=== PATIENT | male | born 1965 | race Caucasian/White ===

== ENCOUNTER 2016-07-15 08:27 | Outpatient (CLI) | payer OTHER ==
[~2016-07-15] VITALS: Ht 182.9 cm; Wt 109.1 kg
--- NOTE | ~2016-07-15 | HEMODYNAMI ---
PATIENT:RA ARAUZ MEDICAL RECORD: [id number] : 63 LOCATION:D.CAT ADMISSION DATE: 07/15/16 Generatedon:07/15/201613:40 Patient name: RA ARAUZ Patient #: [id number] : 1965 Date of study: 07/15/2016 Page: Of Hemodynamic Procedure Report Patient Data Patient Demographics Procedure consent was obtained First Name: RA Gender: Male Last Name: DAVONTE : 1965 Middle Initial: D Age: 50 year(s) Patient #: [id number] Race: Unknown SSN: [id number] Additional ID: [id number] Contact details [address]: [address] [place] [address] State: [place] City: [place] Zip code: [address] Past Medical History Allergies Allergen Reaction Date Comments Reported Other allergy 07/15/2016 PCN, Plavix Admission Admission Data Admission Date: 07/15/2016 Admission Time: 8:27 Arrival Date: 07/15/2016 Arrival Time: 0:00 Admit Source: Other Insurance Payor: Private health insurance Height (in.): 70 BSA: 2.26 (m2) Height (cm.): 177.8 BMI: 34.44 (kg/m2) Weight (lbs.): 240 Weight (kg.): 108.86 Lab Results Lab Result Date: 07/15/2016 Lab Result Time: 0:00 Biochemistry Name Units Result Min Max BUN mg/dl 16 --(---*)-- 7 18 Creatinine mg/dl 1.2 --(---*)-- 0.6 1.3 CBC Name Units Result Min Max Hemoglobin g/dl 16.5 --(--*-)-- 13.5 17.5 Procedure Procedure Types Cath Procedure Diagnostic Procedure LHC LH w/Coronaries FFR/IVUS PCI Procedure Coronary Stent Initial Procedure Description Procedure Date Procedure Date: 07/15/2016 Procedure Start Time: 13:16 Procedure End Time: 13:39 Procedure Staff Name Function Sergio Aguiar MD Performing Physician Pati Aguilar RN Nurse Kaylee Copeland RT Monitor Kali Engel RN School Administrator Lesly Moe RT Scrub Procedure Data Cath Procedure Fluoroscopy Diagnostic fluoroscopy Total fluoroscopy Time: 5.3 time: 5.3 min min Diagnostic fluoroscopy Total fluoroscopy dose: 556 dose: 556 mGy mGy Contrast Material Contrast Material Type Amount (ml) Isovue 300 136 Entry Location Entry Primary Successful Side Size Upsize Upsize Entry Closure Diana ccessful Closure Location (Fr) 1 (Fr) 2 (Fr) Remarks Device Remarks Radial Right 6 Fr Mechanical TR Large artery Short Compression Estimated blood loss: 10 ml Diagnostic catheters Device Type Used For End Catheter Placement Terumo 5Fr [place] 110cm LV Angiography catheter Terumo 5Fr [place] 110cm Left Coronary catheter Angiography Terumo 5Fr [place] 110cm Right Coronary catheter Angiography Procedure Complications No complications Procedure Medications Medication Administration Route Dosage Oxygen NC 2 l/min Benadryl I.V. 50 mg Lidocaine 2% added to field 20 Heparin Flush Bag added to field 2 bags (1000units/500ml NS) 0.9% NaCl I.V. 100 ml/hr Radial Cocktail I.A. 1 syringe (Verapomil 2mg/Nitro 400mcg/Heparin 1500units) Versed I.V. 1 mg Fentanyl I.V. 50 mcg Versed I.V. 1 mg Fentanyl I.V. 50 mcg Heparin Bolus I.V. 4000 units Integrilin (Bolus I.V. 9.5 ml 2mg/ml) Fentanyl I.V. 50 mcg Versed I.V. 0.5 mg Effient P.O. 60 mg Hemodynamics Rest BSA: 2.26 (m2) HGB: 16.5 (g/dl) O2 Consumption: Estimated: 266.48 (ml/min) O2 Co nsumption indexed: Estimated:117.91 (ml/min/m) Heart Rate: 66 (bpm) Snapshots Pre Cath Intra NCS Post Cath Vital Signs Time Heart Resp SPO2 NIBP (mmHg) Rhythm Pain Sedation Rate (ipm) (%) Status Level (bpm) 13:10:41 67 20 97 145/108(135) NSR 0 (11) 10(A) , No pain 13:15:01 62 18 95 152/103(126) NSR 0 (11) 10(A) , No pain 13:19:19 72 18 96 143/88(112) NSR 0 (11) 9(A) , No pain 13:23:35 75 17 95 121/83(111) NSR 0 (11) 9(A) , No pain 13:27:49 80 16 96 137/86(115) NSR 0 (11) 9(A) , No pain 13:32:09 71 18 96 137/82(100) NSR 0 (11) 9(A) , No pain 13:36:29 73 17 98 136/82(118) NSR 0 (11) 10(A) , No pain Medications Time Medication Route Dose Verified Delivered Reason Note s Effectiveness by by 13:12:57 Oxygen NC 2 l/min Sergio Buffie used for Cosme Aguilar RN procedure 13:13:11 Benadryl I.V. 50 mg Sergio Krueger Per physician Cosme Aguilar RN 13:13:21 Lidocaine 2% added 20ml Sergioloyda Hill for local to vial Cosme Aguiar MD anesthetic field 13:13:26 Heparin Flush added 2 bags Sergio Hill used for Bag to Cosme Aguiar MD procedure (1000units/500ml field NS) 13:13:35 0.9% NaCl I.V. 100 Sergio Buffie Per physician ml/hr Cosme Aguilar RN 13:15:10 Versed I.V. 1 mg Sergio Marroquinie for sedation Cosme Aguilar RN 13:15:16 Fentanyl I.V. 50 mcg Sergio Marroquinie for sedation Cosme Aguilar RN 13:19:49 Radial Cocktail I.A. 1 Sergio Sergio for (Verapomil syringe Cosme Aguiar MD vasodilation 2mg/Nitro 400mcg/Heparin 1500units) 13:21:55 Versed I.V. 1 mg Sergio Marroquinie for sedation Cosme Aguilar RN 13:21:58 Fentanyl I.V. 50 mcg Sergio Marroquinie for sedation Cosme Aguilar RN 13:23:30 Heparin Bolus I.V. 4000 Sergio Marroquinie for veri fied units Cosme Aguilar RN anticoagulation with dr aguiar 13:26:45 Integrilin I.V. 9.5 ml Sergio Krueger for (Bolus 2mg/ml) Cosme Aguilar RN antiplatelet therapy 13:29:34 Fentanyl I.V. 50 mcg Sergio Krueger for sedation Cosme Aguilar RN 13:29:39 Versed I.V. 0.5 mg Sergio Krueger for sedation Cosme Aguilar RN 13:39:22 Effient P.O. 60 mg Sergio Krueger for Cosme Aguilar RN antiplatelet therapy Procedure Log Time Note 12:40:26 Kali Engel RN sent for patient. Start room use. 12:58:03 Admit Source: Other 12:58:24 Diagnostic Cath Status : Elective 12:58:38 Time tracking: Regular hours 12:58:42 Plan of Care:Hemodynamics will remain stable., Cardiac rhythm will remain stable., Comfort level will be maintained., Respiratory function will remain adequate., Patient/ family verbilizes understanding of procedure., Procedure tolerated without complication., Recovers from procedure without complications.. 12:58:56 Patient received from Outpatients to [facility] Alert and oriented. Tansferred to table in Supine position. 12:58:58 Warm blankets applied, and jayla hugger turned on for patient comfort. 12:58:58 Correct patient and procedure confirmed by team. 12:58:59 Signed procedure consent form obtained from patient. 12:59:00 ECG and BP/O2 sat monitors applied to patient. 13:01:23 H&P Date Dictated: 07/15/2016 Within 30 days and on chart., H&P Addendum completed by physician on day of procedure. (MUST COMPLETE FOR ALL OUTPATIENTS). 13:01:25 Pre-procedure instructions explained to patient. 13:01:28 Family in waiting room. 13:01:33 Patient NPO since Midnight. 13:04:16 Patient allergic to Other allergyPCN, Plavix 13:04:21 Is the patient allergic to Iodine/contrast media? No. 13:04:47 Is patient on blood thinner?No 13:04:51 Patient diabetic? Yes. 13:04:52 If diabetic: On Metformin? Yes 13:04:56 If on Metformin: Last Dose? 07/15/2016 13:05:05 Snore? Yes 13:05:08 Sleep apnea? No 13:05:10 Deviated septum? No 13:05:11 Opens mouth fully? Yes 13:05:12 Sticks out tongue? Yes 13:05:21 Dentures? No ? 13:05:34 IV patent on arrival in left hand with 0.9% NaCl at [facility]. 13:06:21 Lab Result : BUN 16 mg/dl 13:06:21 Lab Result : Creatinine 1.2 mg/dl 13:06:21 Lab Result : Hemoglobin 16.5 g/dl 13:06:27 Lab results completed and on chart. 13:06:33 Right Radial & Right Groin area was prepped with chlora-prep and draped in sterile fashion 13:06:35 Alarms reviewed by R. N. 13:06:35 Sharps counted by scrub and verified by R.N. 13:06:37 Physician paged 13:06:52 Physician arrived 13:08:36 Patient Height : 177.8 cm 13:08:52 Patient Weight : 108.86 kg 13:08:52 Insurance Payor : Private health insurance 13:08:56 Arrival Date: 07/15/2016 12:00:00 AM 13:09:37 Vital chart was started 13:09:38 Baseline sample Acquired. 13:09:42 Full Disclosure recording started 13:09:50 ACC Patient presents with Stable Angina CCS Anginal Class 2--Slight limitation of ordinary activity. 13:10:26 --------ALL STOP TIME OUT------ 13:10:27 Final Timeout: patient, procedure, and site verified with staff and physician. All members of the team are in agreement. 13:10:29 Right Radial & Right Groin site verified by team. 13:10:35 Physical assessment completed. ASA score P 2 - A patient with mild systemic disease as per Sergio Aguiar MD. 13:10:39 Sedation plan: IV Moderate Sedation Versed, Fentanyl 13:10:55 Use device set Radial Dx 13:10:56 Acist Syringe opened to sterile field. 13:10:56 Cardinal Cath Pack opened to sterile field. 13:10:57 Bag Decanter opened to sterile field. 13:10:57 Terumo 6Fr Slender Glidesheath opened to sterile field. 13:10:58 St Jose 260cm J .035 wire opened to sterile field. 13:10:58 Acist Hand Control opened to sterile field. 13:10:59 Acist Manifold opened to sterile field. 13:11:01 Tegaderm 4 x 4 opened to sterile field. 13:12:57 Oxygen 2 l/min NC was given by Pati Aguilar RN; used for procedure; 13:13:11 Benadryl 50 mg I.V. was given by Pati Aguilar RN; Per physician; 13:13:21 Lidocaine 2% 20ml vial added to field was given by Sergio Aguiar MD; for local anesthetic; 13:13:26 Heparin Flush Bag (1000units/500ml NS) 2 bags added to field was given by Sergio Aguiar MD; used for procedure; 13:13:35 0.9% NaCl 100 ml/hr I.V. was given by Pati Aguilar RN; Per physician; 13:14:08 Zero performed for pressure channel P1 13:14:14 Zero performed for pressure channel P1 13:15:10 Versed 1 mg I.V. was given by Pati Aguilar RN; for sedation; 13:15:16 Fentanyl 50 mcg I.V. was given by Pati Aguilar RN; for sedation; 13:15:51 Procedure started. 13:16:07 Local anesthetic to right radial artery with Lidocaine 2% by Sergio Aguiar MD.INITIAL ACCESS ONLY 13:16:18 A 6 Fr Short sheath was inserted into the Right Radial artery 13:17:17 J wire advanced. 13:19:49 Radial Cocktail (Verapomil 2mg/Nitro 400mcg/Heparin 1500units) 1 syringe I.A. was given by Sergio Aguiar MD; for vasodilation; 13:20:53 Terumo 6Fr Slender Glidesheath opened to sterile field. 13:21:17 A Terumo 5Fr [place] 110cm catheter was advanced over the wire and used for LV Angiography. 13:21:41 LV Function : Normal 13:21:48 EF : 55 % 13:21:55 Versed 1 mg I.V. was given by Pait Aguilar RN; for sedation; 13:21:58 Fentanyl 50 mcg I.V. was given by Pati Aguilar RN; for sedation; 13:22:01 A Terumo 5Fr [place] 110cm catheter was advanced over the wire and used for Left Coronary Angiography. 13:23:20 A Terumo 5Fr [place] 110cm catheter was advanced over the wire and used for Right Coronary Angiography. 13:23:23 Catheter removed. 13:23:30 Heparin Bolus 4000 units I.V. was given by Pati Aguilar RN; for anticoagulation; verified with dr aguiar 13:25:24 Medtronic Launcher 6Fr AR 2.0 guide catheter opened to sterile field. 13:25:25 [place] IVUS Catheter opened to sterile field. 13:25:26 [place] Whisper J 300cm 0.014 guide wire opened to sterile field. 13:25:27 Merit BasixCompak Inflation Kit opened to sterile field. 13:26:05 IVUS catheter advanced over wire. 13:26:45 Integrilin (Bolus 2mg/ml) 9.5 ml I.V. was given by Pati Aguilar RN; for antiplatelet therapy; 13::56 IVUS pass to RCA lesion performed. 13:29:14 IVUS catheter removed over wire. 13:29:24 PCI Cath status Elective 13::34 Fentanyl 50 mcg I.V. was given by Pati Aguilar RN; for sedation; 13::39 Versed 0.5 mg I.V. was given by Pati Aguilar RN; for sedation; 13:29:39 ACC PCI Site: pRCA has 70% stenosis. 13:29:42 ACC Pre-intervention PRIYANKA Flow is 3. 13:29:52 6 Fr AR2 guide catheter was inserted over the wire 13:29:54 Wire advanced across lesion. 13:30:42 Inflation Number: 1 A Medtronic Resolute 4.0 X 15 stent was prepped and advanced across the Prox RCA. The stent was deployed at 11 CHARLI for 0:10 (min:sec). 13:33:24 Stent catheter was removed intact over wire. 13:34:20 Inflation Number: 1 A Medtronic Resolute 4.0 X 12 stent was prepped and advanced across the Mid RCA. The stent was deployed at 13 CHARLI for 0:10 (min:sec). 13:34:31 Stent catheter was removed intact over wire. 13:34:56 Terumo TR Band Large opened to sterile field. 13:35:02 Wire removed. 13:35:03 Guide catheter removed. 13:35:31 Sheath removed intact; hemostasis achieved with Mechanical Compression to the Right Radial artery. 13:36:20 Procedure ended.(Physican Out) 13:36:32 Fluoroscopy time 05.30 minutes. 13:36:54 Flurop Dose total: 556 13:36:54 Fluoroscopy dose: 556 mGy 13:37:09 Contrast amount:Isovue 300 136ml. 13:37:15 Sharps counted by scrub and verified by R.N. 13:37:25 TR band inflated with 16cc of air. 13:37:29 Insertion/operative site no bleeding no hematoma. 13:38:10 Post right femoral artery:stable 13:38:23 Post-procedure physical assessment completed. ASA score P 2 - A patient with mild systemic disease as per Sergio Aguiar MD. 13:38:27 Post procedure rhythm: unchanged. 13:38:30 Estimated blood loss: 10 ml 13:38:33 Post procedure instruction explained to patient.Patient verbalizes understanding. 13:38:47 Procedure type changed to Cath procedure, Diagnostic procedure, LHC, LHC w/Coronaries, FFR/IVUS, PCI procedure, Coronary Stent Initial 13:38:49 Procedure and supply charges have been captured, reviewed, submitted and are correct. 13:39:20 Procedure Complication : No complications 13:39:22 Effient 60 mg P.O. was given by Pati Aguilar RN; for antiplatelet therapy; 13:39:23 Vital chart was stopped 13:39:24 See physician's report for complete and final results. 13:39:28 Report given to Post Procedure Room. 13:39:34 Patient transfered to Post Procedure Room with Stretcher. 13:39:37 Procedure ended. 13:39:37 Full Disclosure recording stopped 13:39:48 ACC-PCI Only Patient was given prescriptions, or instructed by Sergio Aguiar MD to start/continue the following medications upon discharge: Effient 13:39:50 End room use (Document Last) Intervention Summary Intervention Notes Time ActionType Lesion and Equipment Action# Pressure Duration Attributes Used 13:30:42 Place stent Prox RCA Medtronic 1 11 00:10 Resolute 4.0 X 15 stent 13:34:20 Place stent Mid RCA Medtronic 1 13 00:10 Resolute 4.0 X 12 stent Device Usage Item Name Manufacture Quantity Catalog Hospital Part Current Minimal Lot# / Number Charge Number Stock Stock Serial# Code Acist Acist 1 25600 [id number] 084018 [id number] 20 HumanCentric Performance [facility] [address] 502679 62120 538515 5 Cath Pack Health Bag Microtek 1 2002S 320743 58992 532483 5 Alert [employer]. Terumo 6Fr Terumo 2 [id number] 183168 274037 176754 [address] Jose 1 919168 169755 741439 009359 30 260cm J .035 wire Acist Hand Acist 1 97411 223266 978757 790980 5 Control Medical Systems Inc Acist Acist 1 36100 596058 882252 887910 5 Manifold Medical Systems Inc Tegaderm 4 3M 1 1626W 648149 158500 646334 5 x 4 Terumo 5Fr Terumo 1 40-8102 373957 649373 384600 5 [place] 110cm catheter Medtronic Medtronic 1 [id number] 334903 22393 339405 1 Launcher 6Fr AR 2.0 guide catheter [place] 1 [id number] 684445 306897 071244 8 [place] IVUS Catheter [facility] 1 [id number] 996780 381211 856254 5 Whisper J Vascular 300cm 0.014 guide wire Merit Merit 1 [id number] 864327 014803 517343 15 BasixCompak Medical Inflation Kit Medtronic Medtronic 1 [id number] 200002 186668 0 [id number] Resolute 4.0 X 15 stent Medtronic Medtronic 1 [id number] 469290 688040 0 [id number] Resolute 4.0 X 12 stent Terumo TR Terumo 1 [id number] 910317 975955 40 Band Large Signature Audit Saline Stage Time Signature Unsigned Intra-Procedure 07/15/2016 Kaylee Copeland 1:40:41 PM RT(R) Signatures Monitor : Kaylee Copeland Signature : RT Date : Time : [facility] [address] [place] [address]
[~2016-07-15 08:27] MED LIST: CHILDREN'S ASPI81 MG PO; EFFIENT10 MG PO; IMDUR30 MG PO; LOPRESSOR25 MG PO; PLAVIX75 MG PO; PRAVACHOL40 MG PO; ZESTRIL20 MG PO
[2016-07-15 11:11] LABS: BASOPHILS 0.2 % (0.0-2.0); EOSINOPHILS 0.9 % (0-7); HEMATOCRIT 46.9 % (42.0-54.0); HEMOGLOBIN 16.5 g/dL (13.5-17.5); IMMATURE GRANULOCYTES 0.3 % (0-5); LYMPHOCYTES 20.2 % (15-50); MCH 29.2 pg (26.0-34.0); MCHC 35.2 g/dL (31.0-37.0); MEAN PLATELET VOLUME 10.9 fL (7.4-10.4); NEUTROPHILS 68.4 % (40-80); PLATELET COUNT 157 10x3/uL (130-400); RBC 5.65 10x6/uL (4.20-6.10); RDW 13.2 % (11.5-14.5); WBC 6.5 10x3/uL (4.8-10.8)
[2016-07-15 11:24] LABS: ANION GAP 12.4 mmol/L (8-16); CALCIUM 9.2 mg/dL (8.5-10.1); CARBON DIOXIDE 28.9 mmol/L (21.0-32.0); CREATININE - SERUM 1.2 mg/dL (0.6-1.3); POTASSIUM - SERUM 4.3 mmol/L (3.5-5.1)
[2016-07-15 11:39] VITALS: BP 131/75; Ht 182.9 cm; Wt 109.1 kg
[2016-07-15] MEDS ORDERED: GLUCOPHAGE850 MG PO (11:42)
[2016-07-15] MEDS ORDERED: NORVASC5 MG PO (11:43)
[2016-07-15] MEDS ORDERED: PLAVIX75 MG PO (13:45)
[2016-07-15] MEDS ORDERED: EFFIENT10 MG PO (13:46)
--- NOTE | 2016-07-15 14:06 | NUR ---
VSS WITH CHEST PAIN DENIED. TR BAND TO R/WRIST CDI NO BLEEDING NO HEMATOMA NOTED. INSTRUCTED PATIENT TO KEEP RUE STRAIGHT NO BENDING OR FLEXING OF WRIST
--- NOTE | 2016-07-15 14:31 | NUR ---
RESTING QUIETLY WITH EYES CLOSED NO DISTRESS NOTED. VSS TR BAND TO R/WRIST CDI NO BLEEDING NO HEMATOMA NOTED WILL MONITOR
--- NOTE | 2016-07-15 14:46 | NUR ---
VSS WITH CHEST PAIN DENIED TR BAND TO R/WRIST CDI NO BLEEDING NO HEMATOMA NOTED WILL MONITOR
--- NOTE | 2016-07-15 15:20 | NUR ---
REPORT CALLED TO OUTPATIENT WITH STAFF TO TRANSFER VIA STRETCHER AT SIDE. TR BAND REMAINS TO R/WRIST CDI NO BLEEDING NO HEMATOMA NOTED CHEST PAIN IS DENIED
--- NOTE | 2016-07-15 18:57 | NUR ---
1525 RECEIVED FROM CATH RECOVERY. ALERT AND TALKATIVE. RESP EVEN AND NONLABORED POST CATH AND STENT PLACEMENT. TRBAND TO RT WRIST NO BLEEDING RADIAL PULSE PRESENT,AND INSTRUCTED NOT TO MOVE OR LIFT WITH WRIST.
--- NOTE | 2016-07-15 19:15 | NUR ---
1625 NO BLEEDING TO RT WRIST AND TRBAND ON RADIAL PULSE PRESENT. RESTING QUIETLY.
--- NOTE | 2016-07-15 19:18 | NUR ---
1630 4CC OF AIR REMOVED FROM TRBAND NO BLEEDING.
--- NOTE | 2016-07-15 19:18 | NUR ---
1645 4CC OF AIR REMOVED FROM TRBAND NO BLEEDING.
--- NOTE | 2016-07-15 19:19 | NUR ---
1720 4CC OF AIR REMOVED FROM TRBAND,NO BLEEDING.
--- NOTE | 2016-07-15 19:19 | NUR ---
1700 4CC OF AIR REMOVED FROM TRBAND NO BLEEDING.
--- NOTE | 2016-07-15 19:20 | NUR ---
1730 TRBAND OFF DCD IV CATHETER INTACT. WENT OVER DISCHARGE INSTRUCTIONS POST CATH INSTRUCTIOPNS EFIENT SCRIPT GIVEM AND FOLLOW UP APPOINTMENT GIVEN AND VERBALLY UNDERSTANDS.
--- NOTE | 2016-07-15 19:21 | NUR ---
1735 VOIDED PRIOR TO DISCHARGE AND TO HOME VIA W/C WITH FAMILY.
--- NOTE | 2016-07-22 11:11 | HP ---
PATIENT: RA ARAUZ MEDICAL RECORD: [id number] ACCOUNT: [id number] LOCATION:[facility] : 63 ADMISSION DATE: 07/15/16 HISTORY AND PHYSICAL EXAMINATION DIAGNOSES: 1. Angina. 2. Coronary artery disease. 3. Hypertension. 4. Hyperlipidemia. HISTORY OF PRESENT ILLNESS: Mr. Arauz presents with anginal symptomatology, underwent nuclear stress testing revealing a large perfusion defect anterolaterally. He is now brought for cardiac catheterization. PHYSICAL EXAMINATION: GENERAL APPEARANCE: Well-nourished, well-developed, appears stated age. Level of distress, comfortable. PSYCHIATRIC: Mental status, alert, normal affect. Orientation, oriented to time, place and person. EYES: Lids and conjunctiva, noninjected. No discharge, no pallor. ENT: Lips, teeth, gums, normal dentition. Oropharynx, no cyanosis, no pallor. NECK: Carotid arteries, bilateral normal upstroke, no bruits, no thrills. JUGULAR VEINS: No jugular venous pressure or distention. CERVICAL LYMPH NODES: Nontender, nonenlarged. THYROID: Not enlarged. Nontender. No nodules. LUNGS: Respiratory effort, unlabored. CHEST: Normal curvature. No thoracic deformity. No chest wall tenderness. Percussion, resonant. Auscultation, clear. No wheezes, no rales, no rhonchi. CARDIOVASCULAR: Precordial exam, nondisplaced. No heaves or pericardial thrills. Rate and rhythm, regular. Heart sounds, normal S1, normal S2. No S3, no gallop, no rub. Systolic murmur, not heard. Diastolic murmur, not heard. EXTREMITIES: No cyanosis, no edema. Peripheral pulses, full and equal in all extremities, except as noted. No bruits appreciated. ABDOMEN: Soft, nondistended. Normal aorta. No bruit. Nontender. No masses. Liver, nontender, no hepatomegaly. Spleen, nontender, no splenomegaly. MUSCULOSKELETAL: No joint tenderness. No joint swelling. No erythema. NEUROLOGICAL: Normal gait, normal strength, normal tone. SKIN: Warm and dry. REVIEW OF SYSTEMS: The patient reports easy bruising but reports no swollen glands. The patient reports no fever, no night sweats, no significant weight gain, no significant weight loss. No significant exercise tolerance. The patient reports no dry eyes, no irritation, no vision change. Patient reports no difficulty hearing and no ear pain. Patient reports no frequent nose bleeds or nose and sinus problems. Patient reports on arm pain on exertion. No shortness of breath while lying down. No history of heart murmur. Patient reports no cough, no wheezing or coughing up blood. Patient reports no abdominal pain, no vomiting. Normal appetite. No diarrhea and not vomiting blood. No nausea and no constipation. Patient reports no incontinence. No difficulty urinating. No hematuria. No increased frequency. Patient reports no muscle aches. No weakness, no arthralgias, no back pain. No swelling of the extremities. Patient reports no abnormal mole, no jaundice, no rashes. Reports no loss of consciousness. No weakness and no numbness. No seizures, dizziness, or headaches. The patient reports no depression, no sleep disturbance, feeling HISTORY AND PHYSICAL [id number] RA ARAUZ safe in a relationship and no alcohol abuse. Patient reports on fatigue. Reports no runny nose or sinus pressure. No itching, no hives, and no frequent sneezing. OVERALL IMPRESSION: Increasing anginal symptomatology in an unstable fashion with a very abnormal nuclear stress test. We will proceed with coronary angiography. Further care depends upon findings of the angiography. TRANSINT:[id number] Voice Confirmation ID: [id number] DOCUMENT ID: [id number] RAKESH TODD MD at 1111 CC: [id number] DICTATION DATE: 07/15/16 0946 JAVA FRONT END WEB DEVELOPER: 07/15/16 1019 DEP CLI 07/15/16 [place] [id number]
--- NOTE | 2016-07-22 11:11 | OP ---
PATIENT NAME: RA ARAUZ MEDICAL RECORD: [id number] :63 LOCATION:D.CAT ADMISSION DATE: SURGEON: RAKESH TODD MD DATE OF OPERATION: 07/15/2016 PROCEDURES: 1. PTCA stent RCA. 2. Intravascular ultrasound RCA. 3. Left heart catheterization. 4. Selective coronary angiography. 5. Left ventriculogram. INDICATION: Angina and coronary artery disease. PROCEDURE IN DETAIL: After informed consent was obtained and after a detailed explanation of the risks, benefits as well as alternative therapies, the patient elected to proceed with angiogram and angioplasty. The right radial area was prepped and draped in normal sterile fashion. Right radial artery was cannulated via modified Seldinger technique with placement of 6-Upper Sorbian sheath. All catheters exchanged through this sheath. FINDINGS: Left ventriculogram was performed in standard 30-degree KENNEDY view, reveals preserved ejection fraction at 50%. SELECTIVE CORONARY ANGIOGRAPHY: 1. Left main showed no significant angiographic disease. 2. Left anterior descending has previously placed stents, these are patent. There is moderate irregularities throughout the LAD and its branches. 3. Left circumflex has a 90% stenosis of the first obtuse marginal and the circumflex itself. 4. The right coronary has a 70% stenosis proximally confirmed by intravascular ultrasound. PERCUTANEOUS TRANSLUMINAL CORONARY ANGIOPLASTY STENT OF THE RIGHT CORONARY ARTERY: Decision was made to intervene on the RCA secondary to poor catheter seating in the left which will most likely need a femoral approach, as well as the RCA being the largest of the vessels. The RCA was addressed with a 4.0 x 15 and 4.0 x 12 Resolute stent. Result was 0% residual stenosis. OVERALL IMPRESSION: Successful percutaneous transluminal coronary angioplasty stent of the right coronary artery going from 70% initial stenosis confirmed by intravascular ultrasound to 0% residual. PLAN: For PTCA stent of the left circumflex in the near future. TRANSINT:[id number] Voice Confirmation ID: [id number] DOCUMENT ID: [id number] OPERATIVE REPORT [id number] DAVONTERARAKESH STAPLES MD at 1111 CC: [id number] DICTATION DATE: 07/15/16 1341 [facility] RESIDENT: 07/15/16 1451 [facility] CLI 07/15/16 [place] [id number] [place] [address]
--- NOTE | 2016-07-22 11:11 | HP ---
PATIENT: RA ARAUZ MEDICAL RECORD: [id number] ACCOUNT: [id number] LOCATION:[facility] : 63 ADMISSION DATE: 07/15/16 HISTORY AND PHYSICAL EXAMINATION ADMITTING DIAGNOSES: 1. Angina. 2. Coronary artery disease. 3. Recent percutaneous transluminal coronary angioplasty stent of the right coronary artery with concomitant disease of the left circumflex. 4. Hypertension. 5. Hyperlipidemia. HISTORY OF PRESENT ILLNESS: Mr. Arauz presents with unstable angina last week, found to have 2-vessel coronary artery disease of the circumflex and underwent successful PTCA stent of the RCA. He has a 90% of the circumflex and ramus intermedius that is now brought back for PTCA stent of both of these territories. PHYSICAL EXAMINATION: GENERAL APPEARANCE: Well-nourished, well-developed, appears stated age. Level of distress, comfortable. PSYCHIATRIC: Mental status, alert, normal affect. Orientation, oriented to time, place and person. EYES: Lids and conjunctiva, noninjected. No discharge, no pallor. ENT: Lips, teeth, gums, normal dentition. Oropharynx, no cyanosis, no pallor. NECK: Carotid arteries, bilateral normal upstroke, no bruits, no thrills. JUGULAR VEINS: No jugular venous pressure or distention. CERVICAL LYMPH NODES: Nontender, nonenlarged. THYROID: Not enlarged. Nontender. No nodules. LUNGS: Respiratory effort, unlabored. CHEST: Normal curvature. No thoracic deformity. No chest wall tenderness. Percussion, resonant. Auscultation, clear. No wheezes, no rales, no rhonchi. CARDIOVASCULAR: Precordial exam, nondisplaced. No heaves or pericardial thrills. Rate and rhythm, regular. Heart sounds, normal S1, normal S2. No S3, no gallop, no rub. Systolic murmur, not heard. Diastolic murmur, not heard. EXTREMITIES: No cyanosis, no edema. Peripheral pulses, full and equal in all extremities, except as noted. No bruits appreciated. ABDOMEN: Soft, nondistended. Normal aorta. No bruit. Nontender. No masses. Liver, nontender, no hepatomegaly. Spleen, nontender, no splenomegaly. MUSCULOSKELETAL: No joint tenderness. No joint swelling. No erythema. NEUROLOGICAL: Normal gait, normal strength, normal tone. SKIN: Warm and dry. REVIEW OF SYSTEMS: The patient reports easy bruising but reports no swollen glands. The patient reports no fever, no night sweats, no significant weight gain, no significant weight loss. No significant exercise tolerance. The patient reports no dry eyes, no irritation, no vision change. Patient reports no difficulty hearing and no ear pain. Patient reports no frequent nose bleeds or nose and sinus problems. Patient reports on arm pain on exertion. No shortness of breath while lying down. No history of heart murmur. Patient reports no cough, no wheezing or coughing up blood. Patient reports no abdominal pain, no vomiting. Normal appetite. No diarrhea and not vomiting blood. No nausea and no constipation. Patient reports no incontinence. No difficulty urinating. No hematuria. No increased frequency. Patient reports HISTORY AND PHYSICAL [id number] RA ARAUZ no muscle aches. No weakness, no arthralgias, no back pain. No swelling of the extremities. Patient reports no abnormal mole, no jaundice, no rashes. Reports no loss of consciousness. No weakness and no numbness. No seizures, dizziness, or headaches. The patient reports no depression, no sleep disturbance, feeling safe in a relationship and no alcohol abuse. Patient reports on fatigue. Reports no runny nose or sinus pressure. No itching, no hives, and no frequent sneezing. OVERALL IMPRESSION: Anginal symptomatology with significant disease of the circumflex and ramus. We will proceed with PTCA stent of circumflex and ramus. TRANSINT:[id number] Voice Confirmation ID: [id number] DOCUMENT ID: [id number] RAKESH TODD MD at 1111 CC: [id number] DICTATION DATE: 07/18/16 0847 [employer] EQUIPMENT OPERATOR: 07/18/16 0854 [facility] CLI 07/15/16 [place] [id number] [place] [address]
== END 2016-07-15 17:35 | disposition home or self-care (01) ==
LOC: D.CATH 08:27
PROVIDERS: Internal Medicine Interventional Cardiology
DX: I25.119 Atherosclerotic heart disease of native coronary artery with unspecified angina pectoris (principal); I10 Essential (primary) hypertension; E78.5 Hyperlipidemia, unspecified

== ENCOUNTER → 2016-07-20 07:03 | Outpatient (CLI) | payer OTHER ==
[~2016-07-20] VITALS: Ht 182.9 cm; Wt 109.1 kg
--- NOTE | ~2016-07-20 | HEMODYNAMI ---
PATIENT:RA ARAUZ MEDICAL RECORD: [id number] : 63 LOCATION:[facility] ADMISSION DATE: 07/20/16 Generatedon:07/20/201610:18 Patient name: RA ARAUZ Patient #: [id number] : 1965 Date of study: 07/20/2016 Page: Of Hemodynamic Procedure Report Patient Data Patient Demographics Procedure consent was obtained First Name: RA Gender: Male Last Name: DAVONTE : 1965 Middle Initial: NICKI Age: 50 year(s) Patient #: [id number] Race: SSN: [id number] Additional ID: [id number] Contact details [address]: [address] [place] [address] State: [place] City: [place] Zip code: [address] Past Medical History Allergies Allergen Reaction Date Comments Reported Other allergy 07/15/2016 PCN, Plavix Other allergy 07/20/2016 PLAVIX, PCN Admission Admission Data Admission Date: 07/20/2016 Admission Time: 7:03 Admit Source: Other Insurance Payor: Private health insurance Height (in.): 72 BSA: 2.3 (m2) Height (cm.): 182.88 BMI: 32.55 (kg/m2) Weight (lbs.): 240 Weight (kg.): 108.86 Medications upon Admission Medications Dosage Times Administered Last Remarks per Delivery Day Date and Time Aspirin Yes 07/19/2016 (any) 0:00 Prasugrel Yes 07/20/2016 0:00 Lab Results Lab Result Date: 07/20/2016 Lab Result Time: 7:30 Biochemistry Name Units Result Min Max BUN mg/dl 18 --(---*)-- 7 18 Creatinine mg/dl 1.3 --(---*)-- 0.6 1.3 CBC Name Units Result Min Max Hematocrit % 44.9 --(*---)-- 42 54 Hemoglobin g/dl 15.8 --(--*-)-- 13.5 17.5 Procedure Procedure Types Cath Procedure PCI Procedure Coronary Stent Initial x2 Procedure Description Procedure Date Procedure Date: 07/20/2016 Procedure Start Time: 9:52 Procedure End Time: 10:18 Procedure Staff Name Function Peg Hicks RT Monitor Kali Engel RN Cork Wirer Pati Aguilar RN Nurse Sergio Aguiar MD Performing Physician Augie Guillaume RT Scrub Kaylee Copeland RT Monitor Additional PCI Information PCI indication: Staged PCI Procedure Data Cath Procedure Fluoroscopy Diagnostic fluoroscopy Total fluoroscopy Time: time: 10.6 min 10.6 min Diagnostic fluoroscopy Total fluoroscopy dose: dose: 1793 mGy 1793 mGy Contrast Material Contrast Material Type Amount (ml) Isovue 300 182 Entry Location Entry Primary Successful Side Size Upsize Upsize Entry Closure Succes sful Closure Location (Fr) 1 (Fr) 2 (Fr) Remarks Device Remarks Femoral Right 6 Fr Exoseal artery Short Estimated blood loss: 10 ml Procedure Complications No complications Procedure Medications Medication Administration Route Dosage Oxygen NC 2 l/min Benadryl I.V. 50 mg Lidocaine 2% added to field 20 Heparin Flush Bag added to field 2 bags (1000units/500ml NS) 0.9% NaCl I.V. 100 ml/hr Heparin Bolus I.V. 4000 units Versed I.V. 1 mg Fentanyl I.V. 50 mcg Versed I.V. 1 mg Fentanyl I.V. 50 mcg Versed I.V. 1 mg Versed I.V. 1 mg Hemodynamics Rest BSA: 2.3 (m2) HGB: 15.8 (g/dl) O2 Consumption: Estimated: 269.69 (ml/min) O2 Con sumption indexed: Estimated:117.26 (ml/min/m) Heart Rate: 64 (bpm) Snapshots Pre Cath Intra NCS Post Cath Vital Signs Time Heart Resp SPO2 NIBP (mmHg) Rhythm Pain Sedation Rate (ipm) (%) Status Level (bpm) 9:31:21 59 16 97 139/81(102) NSR 0 (11) 10(A) , No pain 9:35:35 60 21 98 145/92(109) NSR 0 (11) 10(A) , No pain 9:39:51 64 17 97 143/91(110) NSR 0 (11) 10(A) , No pain 9:44:11 57 18 95 150/69(96) NSR 0 (11) 10(A) , No pain 9:48:36 57 17 96 125/69(95) NSR 0 (11) 10(A) , No pain 9:52:47 61 15 98 130/76(93) NSR 0 (11) 9(A) , No pain 9:57:00 76 16 95 129/79(105) NSR 0 (11) 9(A) , No pain 10:01:14 75 17 93 137/77(107) NSR 0 (11) 9(A) , No pain 10:05:28 74 16 97 142/85(109) NSR 0 (11) 9(A) , No pain 10:09:41 76 15 98 140/92(107) NSR 0 (11) 9(A) , No pain 10:13:53 80 18 99 160/93(120) NSR 0 (11) 10(A) , No pain 10:18:16 75 15 97 142/90(120) NSR 0 (11) 10(A) , No pain Medications Time Medication Route Dose Verified Delivered Reason Notes Ef fectiveness by by 9:34:41 Oxygen NC 2 Sergio Buffie used for l/min Cosme Aguilar biometric technician 9:34:49 Benadryl I.V. 50 mg Sergio Buffie used for Cosme Aguilar RN procedure 9:34:57 Lidocaine 2% added 20ml Sergio Sergio for local to vial Cosme Aguiar MD anesthetic field 9:35:03 Heparin Flush added 2 Sergio Sergio used for Bag to bags Cosme Aguiar MD procedure (1000units/500ml field NS) 9:35:13 0.9% NaCl I.V. 100 Sergio Buffie Per ml/hr Cosme Aguilar RN physician 9:48:52 Versed I.V. 1 mg Sergio Marroquinie for Cosme Aguilar RN sedation 9:48:58 Fentanyl I.V. 50 Sergio Buffie for mcg Cosme Aguilar RN sedation 9:52:43 Heparin Bolus I.V. 4000 Sergio Buffie verified units Cosme Aguilar RN with dr aguiar 9:54:03 Versed I.V. 1 mg Sergio Marroquinie for Cosme Aguilar RN sedation 9:54:06 Fentanyl I.V. 50 Sergio Buffie for mcg Cosme Aguilar RN sedation 10:00:21 Versed I.V. 1 mg Sergio Aguilar RN sedation 10:10:28 Versed I.V. 1 mg Sergio Krueger for Cosme Aguilar RN sedation Procedure Log Time Note 9:00:57 Kali Engel RN sent for patient. Start room use. 9:13:31 Informed consent obtained and on chart 9:14:58 Lab Result : Hemoglobin 15.8 g/dl 9::58 Lab Result : Hematocrit 44.9 % 9::58 Lab Result : BUN 18 mg/dl 9::58 Lab Result : Creatinine 1.3 mg/dl 9:16:05 ACC Patient presents with Stable Angina CCS Anginal Class 2--Slight limitation of ordinary activity. 9:16:09 Time tracking: Regular hours 9:16:15 Plan of Care:Hemodynamics will remain stable., Cardiac rhythm will remain stable., Comfort level will be maintained., Respiratory function will remain adequate., Patient/ family verbilizes understanding of procedure., Procedure tolerated without complication., Recovers from procedure without complications.. 9:16:30 H&P Date Dictated: 07/20/2016 Within 30 days and on chart., H&P Addendum completed by physician on day of procedure. (MUST COMPLETE FOR ALL OUTPATIENTS). 9:17:42 PCI Indication : Staged PCI 9:18:03 Lab results completed and on chart. 9:24:01 Patient received from Outpatients to [facility] 3 Alert and oriented. Tansferred to table in Supine position. 9:24:02 Warm blankets applied, and jayla hugger turned on for patient comfort. 9:24:02 Correct patient and procedure confirmed by team. 9:24:03 ECG and BP/O2 sat monitors applied to patient. 9:24:05 Full Disclosure recording started 9:24:55 Pre-procedure instructions explained to patient. 9:24:55 Pre-procedure instructions explained to patient. 9:24:56 Pre-op teaching completed and patient verbalized understanding. 9:24:58 Family in waiting room. 9:24:59 Patient NPO since Midnight. 9:25:28 Patient allergic to Other allergyPLAVIX, PCN 9:25:31 Is the patient allergic to Iodine/contrast media? No. 9:25:33 Is patient on blood thinner?Yes 9:25:52 ACC The patient was administered the following blood thiners within the last 24 hours: ACCAspirin, ACCEffient 9:25:55 Patient diabetic? Yes. 9:25:56 If diabetic: On Metformin? Yes 9:26:02 If on Metformin: Last Dose? 07/12/2016 9:26:07 Previous problem with sedation/anesthesia? No ? 9:26:09 Snore? Yes 9:26:11 Sleep apnea? No 9:26:13 Deviated septum? No 9:26:14 Opens mouth fully? Yes 9:26:14 Sticks out tongue? Yes 9:26:19 Airway obstruction? No ? 9:26:30 Dentures? Yes OUT 9:26:34 Pre procedure: right dorsailis pedis pulse 2+ Normal; easily identifiable; not easily obliterated 9:26:39 Modified Rodney's test Ulnar < 7 seconds 9:26:42 Patient pain scale 0/10 ?. 9:26:47 IV patent on arrival in left wrist with 0.9% NaCl at [facility]. 9:26:55 Right groin area was prepped with chlora-prep and draped in sterile fashion 9:26:56 Alarms reviewed by R. N. 9:26:57 Sharps counted by scrub and verified by R.N. 9:27:01 Acist Syringe opened to sterile field. 9:27:02 Acist Hand Control opened to sterile field. 9:27:02 Bag Decanter opened to sterile field. 9:27:03 Cardinal Cath Pack opened to sterile field. 9:27:03 Merit BasixCompak Inflation Kit opened to sterile field. 9:27:05 St Jose 260cm Straight .035 wire opened to sterile field. 9:27:05 Acist Manifold opened to sterile field. 9:27:07 Tegaderm 4 x 4 opened to sterile field. 9:27:13 Admit Source: Other 9:28:19 Patient Height : 72 cm 9:28:22 Patient Weight : 240 kg 9:28:47 Insurance Payor : Private health insurance 9:29:04 PCI Cath Status : Elective 9:30:11 Vital chart was started 9:30:15 Rhythm: sinus rhythm 9:31:01 Terumo 6Fr Raymond Sheath opened to sterile field. 9:32:05 Beavers Whisper J 300cm 0.014 guide wire opened to sterile field. 9:34:41 Oxygen 2 l/min NC was given by Pati Aguilar RN; used for procedure; 9:34:49 Benadryl 50 mg I.V. was given by Pati Aguilar RN; used for procedure; 9:34:57 Lidocaine 2% 20ml vial added to field was given by Sergio Aguiar MD; for local anesthetic; 9:35:03 Heparin Flush Bag (1000units/500ml NS) 2 bags added to field was given by Sergio Aguiar MD; used for procedure; 9:35:13 0.9% NaCl 100 ml/hr I.V. was given by Pati Aguilar RN; Per physician; 9:37:37 PATIENT HAS A SUPERFICIAL SCRATCH BY HIS DOG ON HIS RIGHT INNER THIGH LOS IS ABOUT 4 INCHES LONG 9:40:06 Baseline sample Acquired. 9:46:06 Physician paged 9:46:29 Zero performed for pressure channel P1 9:47:26 Final Timeout: patient, procedure, and site verified with staff and physician. All members of the team are in agreement. 9:47:29 Right groin site verified by team. 9:47:36 Physical assessment completed. ASA score P 2 - A patient with mild systemic disease as per Sergio Aguiar MD. 9:47:39 Sedation plan: IV Moderate Sedation Versed, Fentanyl 9:48:06 Cordis 6FR XBLAD 4.0 guide catheter opened to sterile field. 9:48:52 Versed 1 mg I.V. was given by Pati Aguilar RN; for sedation; 9:48:58 Fentanyl 50 mcg I.V. was given by Pati Aguilar RN; for sedation; 9:52:12 Procedure started. 9:52:20 Local anesthetic to right femoral artery with Lidocaine 2% by Sergio Aguiar MD.INITIAL ACCESS ONLY 9:52:28 A 6 Fr Short sheath was inserted into the Right Femoral artery 9:52:43 Heparin Bolus 4000 units I.V. was given by Pati Aguilar RN; ; verified with dr aguiar 9:52:56 6 Fr XBLAD 4.0 guide catheter was inserted over the wire 9:52:57 Whisper wire advanced. 9:54:03 Versed 1 mg I.V. was given by Pati Aguilar RN; for sedation; 9:54:06 Fentanyl 50 mcg I.V. was given by Pati Aguilar RN; for sedation; 9:55:24 Inflation number: 1 A Kent Sci Wolfe 2.5 X 20 balloon was prepped and advanced across the Ramus, then inflated to 13 CHARLI for 0:28 (min:sec). 9:55:32 Inflation number: 2 The Kent Sci Wolfe 2.5 X 20 balloon was reinflated across the Ramus, to 15 CHARLI for 0:07 (min:sec). 9:55:58 Inflation number: 3 The Kent Sci Wolfe 2.5 X 20 balloon was reinflated across the Ramus, to 15 CHARLI for 0:16 (min:sec). 9:57:12 Balloon removed over the wire. 9:58:57 Inflation Number: 4 A Medtronic Resolute 2.5 X 18 stent was prepped and advanced across the Ramus. The stent was deployed at 23 CHARLI for 0:15 (min:sec). 10:00:07 Wire redirected to Circ. 10:00:21 Versed 1 mg I.V. was given by Pati Aguilar RN; for sedation; 10:01:06 Inflation number: 1 The stent balloon was then re-inflated across the Mid CX to 13 CHARLI for 0:09 (min:sec). 10:01:44 Stent catheter was removed intact over wire. 10:03:16 Inflation Number: 2 A Medtronic Resolute 2.5 X 26 stent was prepped and advanced across the Mid CX. The stent was deployed at 13 CHARLI for 0:06 (min:sec). 10:03:51 Stent catheter was removed intact over wire. 10:04:01 Wire redirected to RAMUS. 10:04:30 Inflation number: 7 The stent balloon was then re-inflated across the Ramus to 6 CHARLI for 0:15 (min:sec). 10:04:51 Inflation number: 6 The stent balloon was then re-inflated across the Ramus to 3 CHARLI for 0:12 (min:sec). 10:05:29 Inflation number: 5 The stent balloon was then re-inflated across the Ramus to 4 CHARLI for 0:21 (min:sec). 10:06:42 Stent catheter was removed intact over wire. 10:10:28 Versed 1 mg I.V. was given by Pati Aguilar RN; for sedation; 10:11:18 Inflation number: 8 A NC Euphora 2.75 x 15 balloon was prepped and advanced across the Ramus, then inflated to 21 CHARLI for 0:27 (min:sec). 10:11:55 Balloon removed over the wire. 10:11:56 Wire removed. 10:11:56 Guide catheter removed. 10:12:05 Cordis 6Fr Exoseal opened to sterile field. 10:12:42 Sheath removed intact; hemostasis achieved with Exoseal to the Right Femoral artery. 10:12:45 Procedure ended.(Physican Out) 10:13:01 Fluoroscopy time 10.60 minutes. 10:13:08 Fluoroscopy dose: 1793 mGy 10:13:08 Flurop Dose total: 1793 10:13:11 Contrast amount:Isovue 300 182ml. 10:13:13 Sharps counted by scrub and verified by R.N. 10:13:17 Insertion/operative site no bleeding no hematoma. 10:13:25 Post-op/insertion site Right Femoral artery dressed using a 4 x 4 and Tegaderm. 10:13:29 Post right femoral artery:stable, clean and dry 10:13:36 Post Procedure Pulses reassessed and unchanged 10:13:39 Post-procedure physical assessment completed. ASA score P 2 - A patient with mild systemic disease as per Sergio Aguiar MD. 10:13:50 Post procedure rhythm: unchanged. 10:13:52 Estimated blood loss: 10 ml 10:13:54 Post procedure instruction explained to patient.Patient verbalizes understanding. 10:13:54 Patient needs reinforcement of post procedure teaching. 10:14:18 Procedure type changed to Cath procedure, PCI procedure, Coronary Stent Initial x2 10:14:25 Procedure Complication : No complications 10:14:34 See physician's report for complete and final results. 10:17:50 Vital chart was stopped 10:18:13 Procedure and supply charges have been captured, reviewed, submitted and are correct. 10:18:16 Report given to Post Procedure Room. 10:18:20 Patient transfered to Post Procedure Room with Stretcher. 10:18:28 Procedure ended. 10:18:28 Full Disclosure recording stopped 10:18:31 End room use (Document Last) Intervention Summary Intervention Notes Time ActionType Lesion and Equipment Action# Pressure Duration Attributes Used 9:55:24 Inflate Ramus Kent 1 13 00:28 balloon Sci Wolfe 2.5 X 20 balloon 9:55:32 Reinflate Ramus Kent 2 15 00:07 balloon Sci Wolfe 2.5 X 20 balloon 9:55:58 Reinflate Ramus Kent 3 15 00:16 balloon Sci Wolfe 2.5 X 20 balloon 9:58:57 Place stent Ramus Medtronic 4 23 00:15 Resolute 2.5 X 18 stent 10:01:06 Reinflate Mid CX Medtronic 1 13 00:09 stent Resolute balloon 2.5 X 18 stent 10:03:16 Place stent Mid CX Medtronic 2 13 00:06 Resolute 2.5 X 26 stent 10:04:30 Reinflate Ramus Medtronic 7 6 00:15 stent Resolute balloon 2.5 X 26 stent 10:04:51 Reinflate Ramus Medtronic 6 3 00:12 stent Resolute balloon 2.5 X 26 stent 10:05:29 Reinflate Ramus Medtronic 5 4 00:21 stent Resolute balloon 2.5 X 26 stent 10:11:18 Inflate Ramus NC 8 21 00:27 balloon Euphora 2.75 x 15 balloon Device Usage Item Name Manufacture Quantity Catalog Number Hospital Part Current Mini mal Lot# / Charge Number Stock Stock Serial# Code Acist Acist 1 02973 539267 140725 [id number] 20 Syringe Medical Systems Inc Acist Hand Acist 1 10088 103036 354336 350375 5 Linebacker Medical Systems Inc Bag Microtek 1 2002S 123207 34787 821487 5 DecHTP Medical Inc. Cardinal Cardinal 1 [id number] 654205 98060 544597 5 Inspire [facility] 1 [id number] 314948 000679 069524 15 BasixCompak Medical Inflation Kit [facility] Jose 1 070698 480056 410709 860949 1 260cm Straight .035 wire Acist Acist 1 67485 256776 371891 208419 5 TrendBent Medical Systems Inc Tegaderm 4 3M 1 1626W 509698 521097 734994 5 x 4 Terumo 6Fr Terumo 1 [id number] 115189 023607 075874 40 Raymond Sheath Beavers Beavers 1 [id number] 059376 982116 299204 5 Whisper J Vascular 300cm 0.014 guide wire Cordis 6FR Cardinal 1 [id number] 061624 060410 051719 3 XBLAD 4.0 Health guide catheter Kent Sci Kent 1 [id number] 010966 885794 960695 1 [id number] Wolfe Scientific 2.5 X 20 balloon Medtronic Medtronic 1 [id number] 099876 127642 2 [id number] Resolute 2.5 X 18 stent Medtronic Medtronic 1 [id number] 510912 732959 1 [id number] Resolute 2.5 X 26 stent NC Euphora Medtronic 1 [id number] 607870 948651 030143 0 [id number] 2.75 x 15 balloon Cordis 6Fr Cardinal 1 EX600 944214 111263 507737 10 [facility] Signature Audit Mineral Stage Time Signature Unsigned Intra-Procedure 07/20/2016 Peg 10:18:47 AM Counts RT(R) Signatures Monitor : Peg Signature : Counts RT Date : Time : Monitor : Kaylee Copeland Signature : RT Date : Time : [place] [id number] [place] [address]
[~2016-07-20 07:03] MED LIST changes: +GLUCOPHAGE850 MG PO; +NORVASC5 MG PO
[2016-07-20 07:50] LABS: ANION GAP 10.3 mmol/L (8-16); CALCIUM 8.8 mg/dL (8.5-10.1); CREATININE - SERUM 1.3 mg/dL (0.6-1.3); POTASSIUM - SERUM 4.3 mmol/L (3.5-5.1)
[2016-07-20 08:01] LABS: HEMATOCRIT 44.9 % (42.0-54.0); HEMOGLOBIN 15.8 g/dL (13.5-17.5); LYMPHOCYTES 29.3 % (15-50); MCH 29.1 pg (26.0-34.0); MCHC 35.2 g/dL (31.0-37.0); MCV 82.7 fL (80.0-100.0); MEAN PLATELET VOLUME 10.8 fL (7.4-10.4); NEUTROPHILS 61.3 % (40-80); PLATELET COUNT 164 10x3/uL (130-400); RBC 5.43 10x6/uL (4.20-6.10); RDW 13.4 % (11.5-14.5)
[2016-07-20 08:47] VITALS: BP 123/74; Ht 182.9 cm; Wt 109.1 kg
--- NOTE | 2016-07-20 10:47 | NUR ---
HR 71 CHEST PAIN DENIED. BP 152/98. RESPIRATIONS EVEN AND UNLABORED ON ROOM AIR WITH SAT OF 94% 6 FR EXOSEAL R/GROIN CDI NO BLEEDING NO HEMATOMA NOTED.INSTRUCTED PATIENT TO KEEP HEAD FLAT ON PILLOW WITH RLE STRAIGHT
--- NOTE | 2016-07-20 11:15 | NUR ---
1115 VERBALIZED NO CHEST PAIN WITH VSS. TOLERATING ORAL FLUIDS WITH NAUSEA DENIED. 6 FR EXOSEAL R/GROIN CDI NO BLEEDING NO HEMATOMA NOTED. ENCOURAGED PATIENT TO KEEP HEAD FLAT ON PILLOW WITH RLE STRAIGHT
--- NOTE | 2016-07-20 11:44 | NUR ---
NO CHANGE IN ASSESSMENT CONTINUES TO SLEEP WITH NO DISTRESS AT SIDE
--- NOTE | 2016-07-20 12:31 | NUR ---
CHEST PAIN DENIED WITH VSS 6 FR EXOSEAL R/GROIN CDI NO BLEEDING NO HEMATOMA NOTED FAMILY AT SIDE
--- NOTE | 2016-07-20 12:40 | NUR ---
5941 PATIENT COMPLAINS OF LEFT SHOULDER PAIN AND DISCOMFORT. DR TODD NOTIFIED AND PRESENT
--- NOTE | 2016-07-20 13:05 | NUR ---
DR TODD PRESENT WITH ORDERS FOR CLONIDINE 0.2 MG MEDICATION GIVEN ORAL WITH SIPS OF WATER FAMILY AT SIDE. R/GROIN CDI
--- NOTE | 2016-07-20 13:30 | NUR ---
1330 CHES PAIN DENIED BP 140/85 HR 68 6 FR EXOSEAL R/GROIN CDI NO BLEEDING NO HEMATOMA NOTED. FAMILY AT SIDE
--- NOTE | 2016-07-20 14:16 | NUR ---
PIV REMOVED FROM LEFT HAND WITH DRESSING APPLIED REPOSITIONED TO SITTING WITH HOB UP 45 DEGREES. CHEST PAIN IS DENIED. 6 FR EXOSEAL R/GROIN CDI NO BLEEDING NO HEMATOMA NOTED FAMILY AT SIDE
--- NOTE | 2016-07-20 14:40 | NUR ---
DISCHARGE INSTRUCTIONS GONE OVER WITH PATIENT AND FAMILY ALL VERBALIZED UNDERSTANDING. R/GROIN REMAINS CDI NO BLEEDING NO HEMATOMA NOTED. CHEST PAIN IS DENIED TRANSPORTED VIA WC TO [facility] FOR DRIVE HOME
--- NOTE | 2016-07-22 11:11 | HP ---
PATIENT: RA ARAUZ MEDICAL RECORD: [id number] ACCOUNT: [id number] LOCATION:[facility] : 63 ADMISSION DATE: 07/20/16 HISTORY AND PHYSICAL EXAMINATION ADMITTING DIAGNOSES: 1. Angina. 2. Coronary artery disease. 3. Recent percutaneous transluminal coronary angioplasty stent of the right coronary artery with concomitant disease of the left circumflex. 4. Hypertension. 5. Hyperlipidemia. HISTORY OF PRESENT ILLNESS: Mr. Arauz presents with anginal symptomatology, found to have 2-vessel coronary artery disease of the RCA and circumflex, underwent successful PTCA stent of the RCA. He is now brought back for PTCA stent of the left circumflex. PHYSICAL EXAMINATION: GENERAL APPEARANCE: Well-nourished, well-developed, appears stated age. Level of distress, comfortable. PSYCHIATRIC: Mental status, alert, normal affect. Orientation, oriented to time, place and person. EYES: Lids and conjunctiva, noninjected. No discharge, no pallor. ENT: Lips, teeth, gums, normal dentition. Oropharynx, no cyanosis, no pallor. NECK: Carotid arteries, bilateral normal upstroke, no bruits, no thrills. JUGULAR VEINS: No jugular venous pressure or distention. CERVICAL LYMPH NODES: Nontender, nonenlarged. THYROID: Not enlarged. Nontender. No nodules. LUNGS: Respiratory effort, unlabored. CHEST: Normal curvature. No thoracic deformity. No chest wall tenderness. Percussion, resonant. Auscultation, clear. No wheezes, no rales, no rhonchi. CARDIOVASCULAR: Precordial exam, nondisplaced. No heaves or pericardial thrills. Rate and rhythm, regular. Heart sounds, normal S1, normal S2. No S3, no gallop, no rub. Systolic murmur, not heard. Diastolic murmur, not heard. EXTREMITIES: No cyanosis, no edema. Peripheral pulses, full and equal in all extremities, except as noted. No bruits appreciated. ABDOMEN: Soft, nondistended. Normal aorta. No bruit. Nontender. No masses. Liver, nontender, no hepatomegaly. Spleen, nontender, no splenomegaly. MUSCULOSKELETAL: No joint tenderness. No joint swelling. No erythema. NEUROLOGICAL: Normal gait, normal strength, normal tone. SKIN: Warm and dry. REVIEW OF SYSTEMS: The patient reports easy bruising but reports no swollen glands. The patient reports no fever, no night sweats, no significant weight gain, no significant weight loss. No significant exercise tolerance. The patient reports no dry eyes, no irritation, no vision change. Patient reports no difficulty hearing and no ear pain. Patient reports no frequent nose bleeds or nose and sinus problems. Patient reports on arm pain on exertion. No shortness of breath while lying down. No history of heart murmur. Patient reports no cough, no wheezing or coughing up blood. Patient reports no abdominal pain, no vomiting. Normal appetite. No diarrhea and not vomiting blood. No nausea and no constipation. Patient reports no incontinence. No difficulty urinating. No hematuria. No increased frequency. Patient reports no muscle aches. No weakness, no arthralgias, no back pain. No swelling of the HISTORY AND PHYSICAL [id number] RA ARAUZ extremities. Patient reports no abnormal mole, no jaundice, no rashes. Reports no loss of consciousness. No weakness and no numbness. No seizures, dizziness, or headaches. The patient reports no depression, no sleep disturbance, feeling safe in a relationship and no alcohol abuse. Patient reports on fatigue. Reports no runny nose or sinus pressure. No itching, no hives, and no frequent sneezing. OVERALL IMPRESSION: Anginal symptomatology with critical disease of the left circumflex. We will proceed with percutaneous transluminal coronary angioplasty stent of the left circumflex. TRANSINT:[id number] Voice Confirmation ID: [id number] DOCUMENT ID: [id number] RAKESH TODD MD at 1111 CC: [id number] DICTATION DATE: 07/20/16 0839 CLUB LICENSEE: 07/20/16 0846 DEP CLI 07/20/16 [place] [id number]
--- NOTE | 2016-07-22 11:11 | OP ---
PATIENT NAME: RA ARAUZ MEDICAL RECORD: [id number] :63 LOCATION:D.CAT ADMISSION DATE: SURGEON: RAKESH TODD MD DATE OF OPERATION: 07/20/2016 PROCEDURES: 1. PTCA, stent left circumflex. 2. PTCA, stent of ramus intermedius. 3. Selective coronary angiography. INDICATION: Angina and coronary artery disease. PROCEDURE IN DETAIL: After informed consent was obtained and after detailed explanation of risks, benefits, as well as alternative therapies, the patient elected to proceed with angiogram and angioplasty. The right femoral area was prepped and draped in normal sterile fashion. The right femoral artery was cannulated via modified Seldinger technique with placement of 6-Kyrgyz sheath. All catheters were exchanged through this sheath. FINDINGS: The left circumflex and ramus intermedius, both had 95% stenosis. The left circumflex was addressed with a 2.5 x 26 mm Resolute, the ramus intermedius with a 2.5 x 18-mm Resolute. Post-stent dilatation made in the ramus with a 2.75 high pressure balloon to 21 atmospheres. Result was 0% residual. IMPRESSION: Successful percutaneous transluminal coronary angioplasty stent of the ramus intermedius and left circumflex, both going from 95% initial stenosis to 0%. TRANSINT:[id number] Voice Confirmation ID: [id number] DOCUMENT ID: [id number] RAKESH TODD MD at 1111 CC: [id number] DICTATION DATE: 07/20/16 1016 [facility] LOOKOUT TOWER: 07/20/16 1030 [facility] CLI 07/20/16 [place] [id number]
== END | disposition home or self-care (01) ==
LOC: D.CATH 07:03
PROVIDERS: Internal Medicine Interventional Cardiology
DX: I25.119 Atherosclerotic heart disease of native coronary artery with unspecified angina pectoris (principal); I10 Essential (primary) hypertension; E78.5 Hyperlipidemia, unspecified; Z95.5 Presence of coronary angioplasty implant and graft

== ENCOUNTER 2018-09-05 22:10 | Observation (INO) | payer SELFPAY ==
[~2018-09-05] VITALS: Ht 182.9 cm; Wt 109.1 kg
--- NOTE | ~2018-09-05 | HEMODYNAMI ---
PATIENT:RA ARAUZ MEDICAL RECORD: [id number] : 63 [id number] ADMISSION DATE: 09/05/18 Generatedon:09/06/201812:30 Patient name: RA ARAUZ Patient #: [id number] : 1965 Date of study: 09/06/2018 Page: Of Hemodynamic Procedure Report Patient Data Patient Demographics Procedure consent was obtained First Name: RA Gender: Male Last Name: DAVONTE : 1965 Middle Initial: NICKI Age: 52 year(s) Patient #: [id number] Race: SSN: [id number] Additional ID: [id number] Contact details [address]: [address] [place] [address] State: [place] City: [place] Zip code: [address] Past Medical History Allergies Allergen Reaction Date Comments Reported Other allergy 07/15/2016 PCN, Plavix Other allergy 07/20/2016 PLAVIX, PCN Penicillins 09/06/2018 Admission Admission Data Admission Date: 09/05/2018 Admission Time: 23:41 Room #: D.2115 Procedure Procedure Types Cath Procedure Diagnostic Procedure [facility] w/Coronaries Sedation Charges Moderate Sedation up to 30 minutes PCI Procedure Coronary Stent Coronary Stent Initial Procedure Description Procedure Date Procedure Date: 09/06/2018 Procedure Start Time: 11:54 Procedure End Time: 12:24 Procedure Staff Name Function Flakito Thomas MD Performing Physician Ofelia Peralta RT Monitor Lesly Moe RT Scrub Sandy Khan RT Scrub Raiza Baird RN Nurse Procedure Data Cath Procedure Fluoroscopy Diagnostic fluoroscopy Total fluoroscopy Time: 6.5 time: 6.5 min min Diagnostic fluoroscopy Total fluoroscopy dose: dose: 1474 mGy 1474 mGy Contrast Material Contrast Material Type Amount (ml) Isovue 300 120 Entry Location Entry Primary Successful Side Size Upsize Upsize Entry Closure Succes sful Closure Location (Fr) 1 (Fr) 2 (Fr) Remarks Device Remarks Femoral Right 5 Fr 6 Fr Exoseal artery Short Estimated blood loss: 10 ml Diagnostic catheters Device Type Used For End Catheter Placement MULTIPACK JL 4.0 5Fr Procedure catheter MULTIPACK 3DRC 5Fr Procedure catheter MULTIPACK Pigtail 5 Fr Procedure catheter Procedure Complications No complications Procedure Medications Medication Administration Route Dosage 0.9% NaCl I.V. 100 ml/hr Oxygen etCO2 Nasal cannula 2 l/min Lidocaine 2% added to field 20 Heparin Flush Bag added to field 2 bags (1000units/500ml NS) Radial Cocktail added to field 1 syringe (Verapomil 2mg/Nitro 400mcg/Heparin 1500units) Versed I.V. 2 mg Fentanyl I.V. 50 mcg Versed I.V. 2 mg Fentanyl I.V. 50 mcg Versed I.V. 2 mg Heparin Bolus I.V. 9000 units Plavix P.O. 75 mg Hemodynamics Rest Heart Rate: 107 (bpm) Pressure Samples Time Site Value (mmHg) Purpose Heart Use Rate(bpm) 12:02 LV 174/12,34 Snapshot 43 12:03 LV 190/26,24 Snapshot 29 12:03 AO 145/107(119) Pullback 113 12:03 LV 159/9,35 Pullback 113 Gradients Valve Time Site 1 Site 2 Mean SEP/DFP Peak To Heart Use (mmHg) (sec/min) Peak Rate (mmHg) (bpm) Aortic 12:03 LV AO 26 21 14 113 159/9,35 145/107(119) Calculations Valve P-P Mean Valve Index Valve Source Name Gradient Area Flow (cm2) Aortic 14 26 14 26 Snapshots Pre Cath Intra NCS Post Cath Vital Signs Time Heart Resp SPO2 etCO2 NIBP (mmHg) Rhythm Pain Sedation Rate (ipm) (%) (mmHg) Status Level (bpm) 11:34:41 98 19 99 28.5 169/110(133) A-Flutter 0 (11) 10(A) , No pain 11:39:05 107 19 100 30 155/119(130) A-Flutter 0 (11) 10(A) , No pain 11:43:17 103 23 99 24 140/120(136) A-Flutter 0 (11) 10(A) , No pain 11:47:29 93 19 98 25.5 145/121(132) A-Fib 0 (11) 10(A) , No pain 11:51:37 125 21 98 27 137/118(130) A-Fib 0 (11) 10(A) , No pain 11:56:46 92 19 95 24.7 151/129(137) A-Fib 0 (11) 10(A) , No pain 12:01:00 116 13 98 26 155/98(140) A-Fib 0 (11) 9(A) , No pain 12:06:48 139 13 98 21 107/75(80) A-Fib 0 (11) 9(A) , No pain 12:15:45 101 20 99 24.7 144/121(132) A-Fib 0 (11) 9(A) , No pain 12:20:03 108 16 99 24.7 118/74(93) A-Fib 0 (11) 9(A) , No pain 12:24:06 123 15 98 21.7 140/111(123) A-Fib 0 (11) 10(A) , No pain Medications Time Medication Route Dose Verified Delivered Reason Not es Effectiveness by by 11:39:38 0.9% NaCl I.V. 100 Flakito Raiza used for ml/hr William Baird grey percher 11:39:47 Oxygen etCO2 2 l/min Flakito Raiza used for Nasal William Baird procedure cannula RN 11:39:52 Lidocaine 2% added 20ml Flakito Flakito for local to vial William Thomas MD anesthetic field 11:39:57 Heparin Flush added 2 bags Flakito Flakito used for Bag to William Thomas MD procedure (1000units/500ml field NS) 11:40:04 Radial Cocktail added 1 Flakito Flakito used for (Verapomil to syringe William Thomas MD procedure 2mg/Nitro field 400mcg/Heparin 1500units) 11:47:29 Versed I.V. 2 mg Flakito Raiza for sedation William Baird RN 11:47:40 Fentanyl I.V. 50 mcg Flakito Raiza for sedation William Baird RN 11:53:09 Versed I.V. 2 mg Flakito Raiza for sedation William Baird RN 11:53:16 Fentanyl I.V. 50 mcg Flakito Raiza for sedation William Baird RN 11:59:45 Versed I.V. 2 mg Flakito Raiza for sedation William Baird RN 12:12:01 Heparin Bolus I.V. 9000 Flakito Raiza for alisson ified units William Baird anticoagulation with Dr. PRABHU Thomas 12:23:31 Plavix P.O. 75 mg Flakito Raiza for William Baird antiplatelet RN therapy Procedure Log Time Note 11:25:31 Informed consent obtained and on chart 11:26:12 Diagnostic Cath Status : Elective 11:28:10 Raiza Baird RN sent for patient. Start room use. 11:28:11 Time tracking: Regular hours (M-F 7:00 - 5:00) 11:28:15 Plan of Care:Hemodynamics will remain stable., Cardiac rhythm will remain stable., Comfort level will be maintained., Respiratory function will remain adequate., Patient/ family verbilizes understanding of procedure., Procedure tolerated without complication., Recovers from procedure without complications.. 11:28:48 Patient received from Med II to CCL 1 Alert and oriented. Tansferred to table in Supine position. 11:28:50 Warm blankets applied, and jayal hugger turned on for patient comfort. 11:28:50 Correct patient and procedure confirmed by team. 11:28:51 ECG and BP/O2 sat monitors applied to patient. 11:33:28 Vital chart was started 11:33:29 Baseline sample Acquired. 11:33:31 Rhythm: sinus rhythm 11:33:32 Full Disclosure recording started 11:33:44 H&P Date Dictated: 09/06/2018 Within 30 days and on chart.. 11:33:45 Pre-procedure instructions explained to patient. 11:33:45 Pre-op teaching completed and patient verbalized understanding. 11:33:48 Family in patients room. 11:33:50 Patient NPO since Midnight. 11:36:25 Patient allergic to Penicillins 11:36:28 Is the patient allergic to Iodine/contrast media? No. 11:36:38 Is patient on blood thinner?Yes 11:36:41 ACC The patient was administered the following blood thiners within the last 24 hours: ACCPlavix 11:37:00 Patient diabetic? No. 11:37:04 Previous problem with sedation/anesthesia? No ? 11:37:05 Snore? Yes 11:37:06 Sleep apnea? No 11:37:07 Deviated septum? No 11:37:09 Opens mouth fully? Yes 11:37:10 Sticks out tongue? Yes 11:37:13 Airway obstruction? No ? 11:37:17 Dentures? Yes in tight 11:37:25 Pre procedure: right dorsailis pedis pulse 1+ Palpable, but thready & weak; easily obliterated 11:37:44 Modified Rodney's test Ulnar < 7 seconds 11:37:49 Patient pain scale 0/10 ?. 11:39:38 0.9% NaCl 100 ml/hr I.V. was administered by Raiza Baird RN; used for procedure; 11:39:47 Oxygen 2 l/min etCO2 Nasal cannula was administered by Raiza Baird RN; used for procedure; 11:39:52 Lidocaine 2% 20ml vial added to field was administered by Flakito Thomas MD; for local anesthetic; 11:39:57 Heparin Flush Bag (1000units/500ml NS) 2 bags added to field was administered by Flakito Thomas MD; used for procedure; 11:40:04 Radial Cocktail (Verapomil 2mg/Nitro 400mcg/Heparin 1500units) 1 syringe added to field was administered by Flakito Thomas MD; used for procedure; 11:43:57 Lab results completed and on chart. 11:43:59 Right Radial & Right Groin area was prepped with chlora-prep and draped in sterile fashion 11:44:00 Alarms reviewed by R. N. 11:44:00 Sharps counted by scrub and verified by R.N. 11:46:09 --------ALL STOP TIME OUT------ 11:46:10 Final Timeout: patient, procedure, and site verified with staff and physician. All members of the team are in agreement. 11:46:12 Right Radial & Right Groin site verified by team. 11:46:15 Fire Safety Assessment: A--An alcohol-based skin anteseptic being used preoperatively., C--Open oxygen or nitrous oxide is being used., D--An ESU, laser, or fiber-optic light is being used. 11:46:18 Physical assessment completed. ASA score P 2 - A patient with mild systemic disease as per Flakito Thomas MD. 11:46:21 Sedation plan: IV Moderate Sedation Medication:Versed, Fentanyl 11:46:25 Use device set Radial Dx or PCI 11:46:26 ACIST Syringe (50093) opened to sterile field. 11:46:26 Bag Decanter (2002S) opened to sterile field. 11:46:27 ACIST Hand Control (08219) opened to sterile field. 11:46:32 ACIST Manifold (02153) opened to sterile field. 11:46:33 Tegaderm 4 x 4 (1626W) opened to sterile field. 11:46:37 Medline Cath Pack (BNPR08280) opened to sterile field. 11:46:37 DIAGNOSTIC WIRE .035 260cm J wire (851164) opened to sterile field. 11:46:38 MBrace Wrist Support (323640984) opened to sterile field. 11:46:47 SHEATH 6FR Slender (80-0090) opened to sterile field. 11:46:48 NEEDLE Cook 21G 4cm Radial (E87529) opened to sterile field. 11:47:29 Versed 2 mg I.V. was administered by Raiza Baird RN; for sedation; 11:47:40 Fentanyl 50 mcg I.V. was administered by Raiza Baird RN; for sedation; 11:53:09 Versed 2 mg I.V. was administered by Raiza Baird RN; for sedation; 11:53:16 Fentanyl 50 mcg I.V. was administered by Raiza Baird RN; for sedation; 11:54:06 SHEATH 5FR [place] (DCR422) opened to sterile field. 11:54:11 Use device set Multipack Set 11:54:13 DIAGNOSTIC Multipack 5Fr catheter set (WT9435) opened to sterile field. 11:54:22 Procedure started. 11:54:32 Local anesthetic to right femoral artery with Lidocaine 2% by Flakito Thomas MD.INITIAL ACCESS ONLY 11:55:36 A 5 Fr sheath was inserted into the Right Femoral artery 11:56:12 A MULTIPACK JL 4.0 5Fr catheter was advanced over the wire and used for Procedure. 11:58:53 LCA angiography performed. 11:58:55 Catheter exchanged over wire. 11:59:45 Versed 2 mg I.V. was administered by Riaza Baird RN; for sedation; 11:59:51 A MULTIPACK 3DRC 5Fr catheter was advanced over the wire and used for Procedure. 12:00:55 RCA angiography performed. 12:00:57 Catheter exchanged over wire. 12:01:38 A MULTIPACK Pigtail 5 Fr catheter was advanced over the wire and used for Procedure. 12:02:27 LV gram done using KENNEDY 12:02:30 Injector settings: Ml/sec: 10, Volume: 20, 12:03:11 LV hemodynamics recorded. 12:03:26 EF : 25 % 12:05:33 Catheter exchanged over wire. 12:06:03 SHEATH 6FR [place] (VUS512) opened to sterile field. 12:06:03 INFLATOR Merit BasixCompak (VO9747) opened to sterile field. 12:06:04 BMW 300cm Straight [place] 2 wire (1300767) opened to sterile field. 12:06:04 TUBING High Pressure Extension Tubing (William) (IN9402R) opened to sterile field. 12:06:05 GUIDE 6FR XBLAD 3.5 catheter (58996811) opened to sterile field. 12:06:26 Sheath upsized to a 6 Fr Short. 12:08:26 6 Fr XBLAD 3.5 guide catheter was inserted over the wire 12:10:53 BMW 300 wire advanced. 12:11:36 Wire advanced across lesion. 12:12:01 Heparin Bolus 9000 units I.V. was administered by Raiza Baird RN; for anticoagulation; verified with Dr. Thomas 12:12:52 Inflate balloon Inflation number: 1 A EMERGE OTW 2.0 x 20 balloon ([id number]) was prepped and advanced across the Mid LAD, then inflated to 14 CHARLI for 0:10 (min:sec). 12:13:28 Inflation number: 2 The EMERGE OTW 2.0 x 20 balloon ([id number]) was reinflated across the Mid LAD, to 14 CHARLI for 0:10 (min:sec). 12:14:39 Inflation number: 3 The EMERGE OTW 2.0 x 20 balloon ([id number]) was reinflated across the Mid LAD, to 12 CHARLI for 0:10 (min:sec). 12:15:37 Balloon removed over the wire. 12:19:47 Place stent Inflation Number: 4 A REY OTW 2.25 x 18 stent ([id number]) was prepped and advanced across the Mid LAD. The stent was deployed at 14 CHARLI for 0:10 (min:sec). 12::32 Stent catheter was removed intact over wire. 12::33 Wire removed. 12:20:33 Guide catheter removed. 12:21:05 EXOSEAL 6Fr (EX600) opened to sterile field. 12:21:37 Sheath removed intact; hemostasis achieved with Exoseal to the Right Femoral artery. 12::43 Procedure ended.(Physican Out) 12::55 Fluoroscopy time 06.50 minutes. 12:22:00 Flurop Dose total: 1474 12:22:00 Fluoroscopy dose: 1474 mGy 12::05 Contrast amount:Isovue 300 120ml. 12:22:07 Sharps counted by scrub and verified by R.N. 12:22:11 Post-op/insertion site Right Femoral artery dressed using a 4 x 4 and Tegaderm. 12:22:14 Post-procedure physical assessment completed. ASA score P 2 - A patient with mild systemic disease as per Flakito Thomas MD. 12:22:19 Post procedure rhythm: atrial flutter 12:: Estimated blood loss: 10 ml 12:22:24 Post procedure instruction explained to patient.Patient verbalizes understanding. 12:22:25 Patient needs reinforcement of post procedure teaching. 12::45 Procedure type changed to Cath procedure, Diagnostic procedure, LHC, LHC w/Coronaries, Sedation Charges, Moderate Sedation up to 30 minutes, PCI procedure, Coronary Stent, Coronary Stent Initial 12:23:31 Plavix 75 mg P.O. was administered by Raiza Baird RN; for antiplatelet therapy; 12:23:57 Procedure and supply charges have been captured, reviewed, submitted and are correct. 12:24:00 Procedure Complication : No complications 12:24:02 Vital chart was stopped 12:24:02 See physician's report for complete and final results. 12:24:05 Report given to PCU. 12:24:07 Patient transfered to PCU with Bed. 12:24:09 Procedure ended. 12:24:09 Full Disclosure recording stopped 12:24:14 End room use (Document Last) Intervention Summary Intervention Notes Time ActionType Lesion and Equipment Action# Pressure Duration Attributes Used 12:12:52 Inflate Mid LAD EMERGE OTW 1 14 00:10 balloon 2.0 x 20 balloon ([id number]) 12:13:28 Reinflate Mid LAD EMERGE OTW 2 14 00:10 balloon 2.0 x 20 balloon ([id number]) 12:14:39 Reinflate Mid LAD EMERGE OTW 3 12 00:10 balloon 2.0 x 20 balloon ([id number]) 12:19:47 Place stent Mid LAD REY OTW 2.25 4 14 00:10 x 18 stent ([id number]) Device Usage Item Name Manufacture Quantity Catalog Number Hospital Part Current Md nimal Lot# / Charge Number Stock Stock Serial# Code ACIST Syringe Acist 1 86537 845136 556352 734752 20 (67198) Medical Systems ProNoxis Bag Decanter Microtek 1 2001S 582252 35035 539532 5 (2001S) Medical Inc. ACIST Hand Acist 1 74842 303645 666073 890905 5 Control Medical (55598) Systems Inc ACIST Acist 1 57425 435127 248330 037152 5 Manifold Medical (89729) Systems Inc Tegaderm 4 x 3M 1 1626W 375471 184076 979549 5 4 (1626W) Medline Cath Medline 1 [id number] 253887 46660 148766 5 Pack ([id number]) DIAGNOSTIC St Jose 1 605084 813488 862974 475536 30 WIRE .035 260cm J wire (213127) MBrace Wrist Advanced 1 140-0250-00 233379 20763 312616 5 Support Vascular (367082836) Dynamics SHEATH 6FR Terumo 1 [id number] 515031 554186 974649 5 Slender (80-1060) NEEDLE UA Tech Dev Foundation Medical 1 Y96386 790836 841229 791403 5 21G 4cm Radial (M94834) SHEATH 5FR Terumo 1 QIG248 867514 953055 117390 5 [place] (JNP985) DIAGNOSTIC Cardinal 1 DN2551 797538 85378 816115 30 Multipack 5Fr Health catheter set (OK6503) MULTIPACK JL Cardinal 1 914902 5 4.0 5Fr Health catheter MULTIPACK Cardinal 1 014843 5 3DRC 5Fr Health catheter MULTIPACK Cardinal 1 281918 5 Pigtail 5 Fr Health catheter SHEATH 6FR Terumo 1 UBO686 933053 394305 597711 40 [place] (BYP122) INFLATOR Merit 1 SV9347 255224 399064 547464 15 Merit Medical BasixCompak (SV2150) BMW 300cm Beavers 1 3840283 757108 116847 633194 5 Straight Vascular [place] 2 wire (3018169) TUBING High Merit 1 [id number] 322883 71781 938467 10 Pressure Medical Extension Tubing (Thomas) (ML8494W) GUIDE 6FR Cardinal 1 88825870 772751 120379 705296 10 XBLAD 3.5 Health catheter (57393425) EMERGE OTW [place] 1 [id number] 426098 738747 945360 5 [id number] 2.0 x 20 Scientific balloon ([id number]) REY OTW 2.25 Medtronic 1 [id number] 948699 81835 823541 5 [id number] x 18 stent ([id number]) EXOSEAL 6Fr Cardinal 1 EX600 021660 484182 909976 10 (EX600) Health Signature Audit [place] Stage Time Signature Unsigned Intra-Procedure 09/06/2018 Ofelia Peralta 12:30:26 PM RT(R) Signatures Monitor : Ofelia Peralta Signature : RT Date : Time : [address] [place] [address]
[2018-09-05 22:34] LABS: BASOPHILS 0.2 % (0-2); EOSINOPHILS 1.8 % (0-7); HEMATOCRIT 49.1 % (42.0-54.0); HEMOGLOBIN 17.8 g/dL (13.5-17.5); IMMATURE GRANULOCYTES 0.2 % (0-5); LYMPHOCYTES 31.5 % (15-50); MCH 30.8 pg (26.0-34.0); MCHC 36.3 g/dL (31.0-37.0); MCV 84.9 fL (80.0-100.0); MONOCYTES 8.7 % (2-11); NEUTROPHILS 57.6 % (40-80); PLATELET COUNT 148 10x3/uL (130-400); RBC 5.78 10x6/uL (4.20-6.10); RDW 13.1 % (11.5-14.5); WBC 8.4 10x3/uL (4.8-10.8)
[2018-09-05 22:38] LABS: APTT 32.1 SECONDS (22.8-39.4); INR 1.11 (0.85-1.17); PROTIME 13.8 SECONDS (11.6-15.0)
[2018-09-05 22:44] LABS: ALBUMIN 4.4 g/dL (3.4-5.0); ALKALINE PHOSPHATASE 58 U/L (46-116); ALT (SGPT) 89 U/L (10-68); BILIRUBIN - TOTAL 1.37 mg/dL (0.2-1.3); CALC OSMOLALITY 285 mosm/kg (275-300); CALCIUM 8.9 mg/dL (8.5-10.1); CARBON DIOXIDE 27.9 mmol/L (21.0-32.0); CHLORIDE - SERUM 102 mmol/L (98-107); CREATININE - SERUM 1.2 mg/dL (0.6-1.3); POTASSIUM - SERUM 3.7 mmol/L (3.5-5.1); PROTEIN - SERUM 7.5 g/dL (6.4-8.2); SODIUM 141 mmol/L (136-145); UREA NITROGEN 18 mg/dL (7-18); eGFR NON AFRICAN AMERICAN 67 mL/min (90-120)
[2018-09-05 22:47] LABS: GLUCOSE 147 mg/dL (74-106)
[2018-09-05 22:55] LABS: CKMB 1.4 U/L (0.0-3.6); CREATINE KINASE 79 UL (21-232); MAGNESIUM - SERUM 1.9 mg/dL (1.8-2.4); TROPONIN-I 0.036 ng/mL (0.000-0.060)
--- NOTE | 2018-09-06 01:00 | NUR ---
RECIEVED TO ROOM 2114 FROM ER VIA W.C. PT A&O. RESPERATIONS EVEN AND NON LABORED ON RA. VITALS STABLE. IV TO RIGHT AC WITH LR INFUSING AT 125 CC/HR AND HEPARING GTT INFUSING AT 10 CC /HR. IV SITE CLEAN AND DRY. PLACED ON TELEMETRY, 83 FLUTTER PER [facility] AND HISTORY OBTAINED. SANDWHICH TRAY AND DRINK GIVEN TO PT WITH THE UNDERSTANDING OF NOTHING ELSE TO EAT OR DRINK UNTIL SEEN BY PHYSICIAN, PT DENIES PAIN OR OTHER NEEDS AT THIS TIME. AT BED SIDE.
[2018-09-06] MEDS ORDERED: BAYER CHEWABLE81 MG PO (01:02)
[2018-09-06 04:52] VITALS: Ht 182.9 cm; Wt 109.1 kg
[2018-09-06 05:29] VITALS: BP 131/90
[2018-09-06 05:38] LABS: CKMB 1.1 U/L (0.0-3.6); CREATINE KINASE 67 UL (21-232)
--- NOTE | 2018-09-06 07:54 | NUR ---
SITTING UP ON BEDSIDE. NO DISTRESS NO COMPLAINTS WILL CONTINUE TO MONITOR.
[2018-09-06 08:10] LABS: BASOPHILS 0.2 % (0-2); EOSINOPHILS 2.4 % (0-7); HEMATOCRIT 47.6 % (42.0-54.0); HEMOGLOBIN 17.1 g/dL (13.5-17.5); IMMATURE GRANULOCYTES 0.4 % (0-5); LYMPHOCYTES 13.8 % (15-50); MCH 30.8 pg (26.0-34.0); MCHC 35.9 g/dL (31.0-37.0); MCV 85.8 fL (80.0-100.0); MEAN PLATELET VOLUME 11.9 fL (7.4-10.4); MONOCYTES 12.6 % (2-11); NEUTROPHILS 70.6 % (40-80); PLATELET COUNT 140 10x3/uL (130-400); RBC 5.55 10x6/uL (4.20-6.10); RDW 13.2 % (11.5-14.5)
[2018-09-06 08:12] LABS: ANION GAP 13.9 mmol/L (8-16); CALCIUM 9.1 mg/dL (8.5-10.1); CARBON DIOXIDE 27.3 mmol/L (21.0-32.0); CREATININE - SERUM 1.3 mg/dL (0.6-1.3); POTASSIUM - SERUM 4.2 mmol/L (3.5-5.1)
[2018-09-06 08:56] VITALS: BP 115/88
--- NOTE | 2018-09-06 09:22 | NUR ---
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
--- NOTE | 2018-09-06 11:28 | NUR ---
PRE-OPS GIVEN. TO SKILLED LABORER BY BED.
[2018-09-06 11:51] LABS: CKMB 1.2 U/L (0.0-3.6); CREATINE KINASE 63 UL (21-232); TROPONIN-I 0.036 ng/mL (0.000-0.060)
--- NOTE | 2018-09-06 12:54 | NUR ---
BACK FROM REFINERY OPERATOR. VS WNL. RIGHT GROIN STABLE WITHOUT BLEEDING OR HEMATOMA NOTED. WILL MONITOR.
[2018-09-06 17:13] LABS: CREATINE KINASE 52 UL (21-232); TROPONIN-I 0.035 ng/mL (0.000-0.060)
[2018-09-06 17:51] VITALS: BP 145/91
--- NOTE | 2018-09-06 19:22 | NUR ---
RESUMED CARE OF PT, LYING IN BED WITH EYES CLOSED RESPIRATIONS EVEN AND UNLABORED ON ROOM AIR. RIGHT AC INFUSING AMIODARONE @ 10. 72 FLUTTER ON TELEMETRY. RIGHT GROIN C/D/I. AT BEDSIDE, PLAN OF CARE DISCUSSED. SEE NURSE ASSESSMETN. CALL LIGHT IN REACH.
[2018-09-06 20:23] VITALS: BP 138/85
[2018-09-07 01:05] VITALS: BP 166/79
[2018-09-07 05:36] VITALS: BP 164/92
--- NOTE | 2018-09-07 08:00 | NUR ---
ASSESSMENT COMPLETED. ALERT AND ORIENTED. TELEMERTY SHOWS AFLUTTER. RIGHT AC WITH A CORDRONE DRIP. RIGHT GROIN DRSG DRY AND INTACT. PPP. DENIES ANY NEEDS. UP AB DERIAN.
[2018-09-07 08:06] VITALS: BP 145/101
[2018-09-07] MEDS ORDERED: XARELTO20 MG PO (10:31)
[2018-09-07] MEDS ORDERED: PLAVIX75 MG PO (10:32)
[2018-09-07] MEDS ORDERED: AMIODARONE HCL200 MG PO (10:33)
[2018-09-07 11:45] VITALS: BP 131/86
--- NOTE | 2018-09-07 12:36 | NUR ---
PT DISCHARGED. IV DCD WITH TIP INTACT. INSTRUCTIONS GIVEN TO PT. TO PRIVATE CAR PER WHEELCHAIR
--- NOTE | 2018-09-07 17:33 | MORECARE ---
CASE MANAGEMENT DISCHARGE SUMMARY PATIENT: RA ARAUZ UNIT: [id number] ADM DATE: 09/05/18 AGE: 52 : 63 SEX: M ROOM/BED: D.2115 AUTHOR: CEE NUGENT PHYSICIAN: REFERRING PHYSICIAN: MARI CARRION M.D. DATE OF SERVICE: 09/07/18 Discharge Plan Patient Name: RA ARAUZ Facility: [facility]:[place] : 1965 Planned Disposition: Home Anticipated Discharge Date: 09/07/18 Discharge Date: 09/07/2018 Expected LOS: 2 Initial Reviewer: [email or web address] Initial Review Date: 09/07/2018 Generated: 09/07/18 6:32 pm Patient Name: RA ARAUZ Page [id number] at 1733 All edits/amendments must be made on the electronic document DICTATION DATE: 09/07/181731 COACH BUILDER: SOCORRO 09/07/181731 RPT#: [id number] DC DATE:09/07/18 STATUS: DIS IN [facility] [address] [place] [address] END OF REPORT
== END 2018-09-07 13:11 | disposition home or self-care (01) ==
LOC: D.ER 22:10 → D.M2 23:41 → OBSVTIME 23:41 → D.M2 09-07 13:11
PROVIDERS: Family Medicine; ADMIT Internal Medicine Cardiovascular Disease; ATTEND Internal Medicine Cardiovascular Disease
DX: I48.92 Unspecified atrial flutter (principal); I25.10 Atherosclerotic heart disease of native coronary artery without angina pectoris; T82.855A Stenosis of coronary artery stent, initial encounter; Y83.8 Other surgical procedures as the cause of abnormal reaction of the patient, or of later complication, without mention of misadventure at the time of the procedure

== ENCOUNTER 2018-10-11 10:33 | Outpatient (CLI) | payer SELFPAY ==
[~2018-10-11] VITALS: Ht 182.9 cm; Wt 109.1 kg
--- NOTE | ~2018-10-11 | HEMODYNAMI ---
PATIENT:RA ARAUZ MEDICAL RECORD: [id number] : 63 LOCATION:DREGI ADMISSION DATE: 10/11/18 Generatedon:10/11/201812:32 Patient name: RA ARAUZ Patient #: [id number] SSN: [id number] : 1965 Date of study: 10/11/2018 Page: Of Hemodynamic Procedure Report Patient Data Patient Demographics Procedure consent was obtained First Name: RA Gender: Male Last Name: DAVONTE : 1965 Middle Initial: NICKI Age: 52 year(s) Patient #: [id number] Race: SSN: [id number] Additional ID: [id number] Contact details Address: [address] [place] [address] State: [place] City: [place] Zip code: [address] Past Medical History Allergies Allergen Reaction Date Comments Reported Other allergy 07/15/2016 PCN, Plavix Other allergy 07/20/2016 PLAVIX, PCN Penicillins 09/06/2018 Admission Admission Data Admission Date: 10/11/2018 Admission Time: 10:33 Procedure Procedure Types Cath Procedure Diagnostic Procedure Cardioversion External Procedure Description Procedure Date Procedure Date: 10/11/2018 Procedure Start Time: 12:22 Procedure End Time: 12:30 Procedure Staff Name Function Sergio Aguiar MD Performing Physician Nilesh Duong RT Monitor Pati Aguilar RN Nurse Farrukh Galarza MD Additional personnel Procedure Data Cath Procedure Fluoroscopy Diagnostic fluoroscopy Total fluoroscopy Time: 0 time: 0 min min Diagnostic fluoroscopy Total fluoroscopy dose: 0 dose: 0 mGy mGy Contrast Material Contrast Material Type Amount (ml) Isovue 300 0 Estimated blood loss: 0 ml Procedure Complications No complications Procedure Medications Medication Administration Route Dosage Oxygen etCO2 Nasal cannula 2 l/min Refer to Anesthesia Notes for Sedation Medications Hemodynamics Rest Heart Rate: 86 (bpm) Snapshots Pre Cath Intra NCS Post Cath Vital Signs Time Heart Resp SPO2 etCO2 NIBP (mmHg) Rhythm Pain Sedation Rate (ipm) (%) (mmHg) Status Level (bpm) 12:05:24 83 14 94 15.7 129/105(121) A-Flutter 0 (11) 10(A) , No pain 12:09:43 74 14 95 32.3 134/97(116) A-Flutter 0 (11) 10(A) , No pain 12:14:03 82 18 95 33 131/96(111) A-Flutter 0 (11) 10(A) , No pain 12:18:21 86 15 96 30.8 122/99(119) A-Flutter 0 (11) 10(A) , No pain 12:22:37 76 17 96 29.2 122/87(104) NSR 0 (11) 9(A) , No pain 12:24:29 82 11 96 33 121/107(117) NSR 0 (11) 10(A) , No pain Medications Time Medication Route Dose Verified Delivered Reason Notes Effective ness by by 12:07:01 Oxygen etCO2 2 Sergio Krueger used for Nasal l/min Cosme Aguilar RN procedure cannula 12:07:07 Refer to Sergio Krueger Anesthesia Cosme Aguilar RN Notes for Sedation Medications Procedure Log Time Note 11:40:00 Pati Aguilar RN sent for patient. Start room use. 11:42:01 Time tracking: Regular hours (M-F 7:00 - 5:00) 11:42:09 Plan of Care:Hemodynamics will remain stable., Cardiac rhythm will remain stable., Comfort level will be maintained., Respiratory function will remain adequate., Patient/ family verbilizes understanding of procedure., Procedure tolerated without complication., Recovers from procedure without complications.. 12:01:36 Patient arrived from Pre/Post Procedure Room to CCL 3. Patient remains on bed/stretcher for procedure. 12:01:38 Warm blankets applied, and jayla hugger turned on for patient comfort. 12:01:38 Correct patient and procedure confirmed by team. 12:01:40 Signed procedure consent form obtained from patient. 12:01:41 ECG and BP/O2 sat monitors applied to patient. 12:04:09 Vital chart was started 12:04:15 Baseline sample Acquired. 12:04:21 Rhythm: atrial flutter 12:04:23 Full Disclosure recording started 12:06:43 H&P Date Dictated: 10/09/2018 Within 30 days and on chart., H&P Addendum completed by physician on day of procedure. (MUST COMPLETE FOR ALL OUTPATIENTS). 12:06:44 Pre-procedure instructions explained to patient. 12:06:45 Pre-op teaching completed and patient verbalized understanding. 12:06:48 Family in patients room. 12:06:50 Patient NPO since Midnight. 12:06:51 Is the patient allergic to Iodine/contrast media? No. 12:06:57 Is patient on blood thinner?Yes 12:07:01 Oxygen 2 l/min etCO2 Nasal cannula was administered by Pati Aguilar RN; used for procedure; 12:07:01 ACC The patient was administered the following blood thiners within the last 24 hours: ACCPlavix, Xarelto 12:07:02 Patient diabetic? Yes. 12:07:03 If diabetic: On Metformin? Yes 12:07:07 Refer to Anesthesia Notes for Sedation Medications was administered by Pati Aguilar RN; ; 12:07:11 If on Metformin: Last Dose? 10/11/2018 12:07:14 Previous problem with sedation/anesthesia? No ? 12:07:15 Snore? Yes 12:07:16 Sleep apnea? No 12:07:17 Deviated septum? No 12:07:18 Opens mouth fully? Yes 12:07:19 Sticks out tongue? Yes 12:07:21 Airway obstruction? No ? 12:07:25 Dentures? No ? 12:12:30 Lab results completed and on chart. 12:12:36 Quick combo pads placed on patients chest and back. 12:12:39 Farrukh Galarza MD present and monitoring patient for TIVA. 12:14:43 Quick Combo opened to sterile field. 12:19:05 --------ALL STOP TIME OUT------ 12:19:05 Final Timeout: patient, procedure, and site verified with staff and physician. All members of the team are in agreement. 12:19:23 Fire Safety Assessment: C--Open oxygen or nitrous oxide is being used., E--There are other possible contributors. 12:19:26 Physical assessment completed. ASA score P 2 - A patient with mild systemic disease as per Sergio Aguiar MD. 12:19:30 Sedation plan: TIVA Medication:Propofol 12:21:38 Procedure started. 12:21:39 Defibrillator synced and charged to 275 Joules. 12:21:56 Shock delivered. 12:22:00 Patient cardioverted to sinus rhythm . 12:23:21 Procedure ended.(Physican Out) 12:23:33 Fluoroscopy time 00.00 minutes. 12:23:35 Fluoroscopy dose: 0 mGy 12:23:35 Flurop Dose total: 0 12:23:37 Contrast amount:Isovue 300 0ml. 12:23:47 Post Procedure Pulses reassessed and unchanged 12:23:58 Post-procedure physical assessment completed. ASA score P 2 - A patient with mild systemic disease as per Sergio Aguiar MD. 12:24:03 Post procedure rhythm: sinus rhythm 12:24:07 Estimated blood loss: 0 ml 12:24:19 Post procedure instruction explained to patient.Patient verbalizes understanding. 12:24:20 Patient needs reinforcement of post procedure teaching. 12:24:24 Procedure and supply charges have been captured, reviewed, submitted and are correct. 12:24:26 Procedure Complication : No complications 12:30:16 Vital chart was stopped 12:30:16 See physician's report for complete and final results. 12:30:23 Report given to Pre/Post Procedure Room. 12:30:25 Patient transfered to Pre/Post Procedure Room with Stretcher. 12:30:27 Procedure ended. 12:30:27 Full Disclosure recording stopped 12:30:44 End room use (Document Last) Device Usage Item Manufacture Quantity Catalog Hospital Part Current Minimal Lot# / Name Number Charge Number [facility] Sekou Brooke sd# Code [facility] [employer] 1 [id number] Combo Signature Audit [place] Stage Time Signature Unsigned Intra-Procedure 10/11/2018 Nilesh Duong 12:31:49 PM RT(R) Signatures Monitor : Nilesh Duong RT Signature : Date : Time : [address] [id number]
--- NOTE | ~2018-10-11 | OP ---
PATIENT NAME: RA ARAUZ MEDICAL RECORD: [id number] :63 LOCATION:D.CAT ADMISSION DATE: SURGEON: RAKESH TODD MD DATE OF OPERATION: 10/11/2018 DATE OF SERVICE: 10/11/2018 PROCEDURE: DC cardioversion. INDICATION: Atrial fibrillation. PROCEDURE IN DETAIL: IV conscious sedation was per anesthesia. Continuous heart rate, O2 saturation, blood pressure monitoring all undertaken, all of which remains stable. He received 1 shock at 275 joules restoring sinus rhythm. OVERALL IMPRESSION: Successful DC cardioversion from atrial fibrillation to sinus rhythm. TRANSINT:[id number] Voice Confirmation ID: [id number] DOCUMENT ID: [id number] RAKESH TODD MD CC: [id number] DICTATION DATE: 10/11/18 1239 FIRER DIESEL LOCOMOTIVE: 10/11/18 1321 [facility] [address] [place] [address]
[~2018-10-11 10:33] MED LIST changes: +AMIODARONE HCL200 MG PO; +BAYER CHEWABLE81 MG PO; +XARELTO20 MG PO
[2018-10-11 11:05] VITALS: BP 135/99; Ht 182.9 cm; Wt 109.1 kg
[2018-10-11] MEDS ORDERED: ISOSORBIDE MONO30 M1 PO (11:12)
[2018-10-11] MEDS ORDERED: HYDROCODON-ACE1 EAC7 PO (11:13)
[2018-10-11 11:21] LABS: BASOPHILS 0.1 % (0-2); EOSINOPHILS 1.6 % (0-7); HEMATOCRIT 49.9 % (42.0-54.0); HEMOGLOBIN 17.7 g/dL (13.5-17.5); IMMATURE GRANULOCYTES 2.1 % (0-5); LYMPHOCYTES 19.1 % (15-50); MCH 30.8 pg (26.0-34.0); MCHC 35.5 g/dL (31.0-37.0); MCV 86.8 fL (80.0-100.0); MEAN PLATELET VOLUME 11.4 fL (7.4-10.4); MONOCYTES 9.9 % (2-11); NEUTROPHILS 67.2 % (40-80); PLATELET COUNT 167 10x3/uL (130-400); RBC 5.75 10x6/uL (4.20-6.10); RDW 14.1 % (11.5-14.5); WBC 12.6 10x3/uL (4.8-10.8)
[2018-10-11 11:29] LABS: ANION GAP 13.6 mmol/L (8-16); CALCIUM 8.8 mg/dL (8.5-10.1); CARBON DIOXIDE 27.7 mmol/L (21.0-32.0); CREATININE - SERUM 1.4 mg/dL (0.6-1.3); POTASSIUM - SERUM 4.3 mmol/L (3.5-5.1)
[2018-10-11 12:36] LABS: INR 1.92 (0.85-1.17); PROTIME 21.3 SECONDS (11.6-15.0)
--- NOTE | 2018-10-11 12:50 | NUR ---
ROOM AIR, NO RESP DISTRESS. NO C/O PAIN OR NAUSEA. VSS. FAMILY AT BEDSIDE, CALL LIGHT WITHIN REACH.
--- NOTE | 2018-10-11 13:15 | NUR ---
DISCHARGE INSTRUCTIONS GIVEN, VERBALIZED UNDERSTANDING. LEFT PIV D/C'D WITH CATHETER INTACT, BAND AID TO SITE. UP TO BEDSIDE TO GET DRESSED.
--- NOTE | 2018-10-11 13:25 | NUR ---
TAKEN OUT VIA WHEELCHAIR BY CATH WELL SERVICE DERRICK WORKER. LEFT FACILITY WITH FAMILY AND ALL PERSONAL BELONGINGS.
== END 2018-10-11 13:25 | disposition home or self-care (01) ==
LOC: D.CATH 10:33
PROVIDERS: ATTEND Internal Medicine Interventional Cardiology
DX: I48.91 Unspecified atrial fibrillation (principal); Z01.812 Encounter for preprocedural laboratory examination

== ENCOUNTER 2019-04-19 10:26 | Outpatient (CLI) | payer SELFPAY ==
[~2019-04-19] VITALS: Ht 182.9 cm; Wt 109.1 kg
--- NOTE | ~2019-04-19 | HEMODYNAMI ---
PATIENT:RA ARAUZ MEDICAL RECORD: [id number] : 63 LOCATION:DREGI ADMISSION DATE: 04/19/19 Generatedon:04/19/201912:57 Patient name: RA ARAUZ Patient #: [id number] SSN: [id number] : 1965 Date of study: 04/19/2019 Page: Of Hemodynamic Procedure Report Patient Data Patient Demographics Procedure consent was obtained First Name: RA Gender: Male Last Name: DAVONTE : 1965 Middle Initial: NICKI Age: 53 year(s) Patient #: [id number] Race: SSN: [id number] Additional ID: [id number] Contact details [address]: [address] [place] [address] State: [place] City: [place] Zip code: [address] Past Medical History Allergies Allergen Reaction Date Comments Reported Other allergy 07/15/2016 PCN, Plavix Other allergy 07/20/2016 PLAVIX, PCN Penicillins 09/06/2018 Admission Admission Data Admission Date: 04/19/2019 Admission Time: 10:26 Procedure Procedure Types Cath Procedure Diagnostic Procedure Cardioversion External Procedure Description Procedure Date Procedure Date: 04/19/2019 Procedure Start Time: 12:45 Procedure End Time: 12:55 Procedure Staff Name Function Sergio Aguiar MD Performing Physician Nilesh Duong RT Monitor Anisa Bush RN Nurse Kehinde Polanco CRNA Additional personnel Procedure Data Cath Procedure Fluoroscopy Diagnostic fluoroscopy Total fluoroscopy Time: 0 time: 0 min min Diagnostic fluoroscopy Total fluoroscopy dose: 0 dose: 0 mGy mGy Contrast Material Contrast Material Type Amount (ml) Isovue 300 0 Estimated blood loss: 0 ml Procedure Complications No complications Procedure Medications Medication Administration Route Dosage 0.9% NaCl I.V. 100 ml/hr Oxygen NC 3 l/min Refer to Anesthesia Notes for Sedation Medications Hemodynamics Rest Heart Rate: 107 (bpm) Snapshots Pre Cath Intra NCS Post Cath Vital Signs Time Heart Resp SPO2 etCO2 NIBP (mmHg) Rhythm Pain Sedation Rate (ipm) (%) (mmHg) Status Level (bpm) 12:43:25 79 6 99 0 132/104(115) NSR (Missing) 10(A) 12:46:40 81 18 91 0 120/88(99) NSR (Missing) 9(A) 12:50:58 79 18 93 0 108/83(93) NSR (Missing) 10(A) Medications Time Medication Route Dose Verified Delivered Reason Notes Effectiven ess by by 12:42:50 0.9% NaCl I.V. 100 Sergio Lange used for ml/hr Cosme Bush technician automatic 12:43:01 Oxygen NC 3 Sergio Lange for low l/min Cosme Bush 02 sats RN 12:43:06 Refer to Sergio Lange Anesthesia Cosme Bush Notes for RN Sedation Medications Procedure Log Time Note 12:30:18 Anisa Bush RN sent for patient. Start room use. 12:35:19 Time tracking: Regular hours (M-F 7:00 - 5:00) 12:35:23 Plan of Care:Hemodynamics will remain stable., Cardiac rhythm will remain stable., Comfort level will be maintained., Respiratory function will remain adequate., Patient/ family verbilizes understanding of procedure., Procedure tolerated without complication., Recovers from procedure without complications.. 12:38:31 Patient arrived from Pre/Post Procedure Room to CCL 3. Patient remains on bed/stretcher for procedure. 12:38:34 Signed procedure consent form obtained from patient. 12:38:35 Warm blankets applied, and jayla hugger turned on for patient comfort. 12:38:36 Correct patient and procedure confirmed by team. 12:38:36 ECG and BP/O2 sat monitors applied to patient. 12:40:02 Kehinde Polanco CRNA present and monitoring patient for TIVA. 12:42:28 Vital chart was started 12:42:40 Baseline sample Acquired. 12:42:49 Rhythm: atrial fibrillation 12:42:50 0.9% NaCl 100 ml/hr I.V. was administered by Anisa Bush RN; used for procedure; Verbal order read back and verified. 12:42:50 Full Disclosure recording started 12:42:58 H&P Date Dictated: 04/12/2019 Within 30 days and on chart., H&P Addendum completed by physician on day of procedure. (MUST COMPLETE FOR ALL OUTPATIENTS). 12:43:01 Oxygen 3 l/min NC was administered by Anisa Bush RN; for low 02 sats; Verbal order read back and verified. 12:43:06 Refer to Anesthesia Notes for Sedation Medications was administered by Anisa Bush RN; ; Verbal order read back and verified. 12:43:14 Quick combo pads placed on patients chest and back. 12:43:25 Quick Combo opened to sterile field. 12:43:29 Pre-procedure instructions explained to patient. 12:43:29 Pre-op teaching completed and patient verbalized understanding. 12:43:31 Family in waiting room. 12:43:32 Patient NPO since Midnight. 12:43:33 Is the patient allergic to Iodine/contrast media? No. 12:43:36 Is patient on blood thinner?Yes 12:43:38 ACC The patient was administered the following blood thiners within the last 24 hours: Xarelto 12:43:40 Patient diabetic? Yes. 12:43:47 If diabetic: On Metformin? No 12:43:58 Previous problem with sedation/anesthesia? No ? 12:44:00 Snore? Yes 12:44:01 Sleep apnea? No 12:44:02 Deviated septum? No 12:44:02 Opens mouth fully? Yes 12:44:03 Sticks out tongue? Yes 12:44:05 Airway obstruction? No ? 12:44:06 Dentures? No ? 12:44:21 Patient pain scale 0/10 ?. 12:44:33 IV patent on arrival in right forearm with 0.9% NaCl at [facility]. 12:44:35 Lab results completed and on chart. 12:44:35 Alarms reviewed by Herb Rodney 12:44:37 --------ALL STOP TIME OUT------ 12:44:37 Final Timeout: patient, procedure, and site verified with staff and physician. All members of the team are in agreement. 12:44:52 Fire Safety Assessment: E--There are other possible contributors. 12:44:55 Physical assessment completed. ASA score P 3 - A patient with severe systemic disease as per Sergio Aguiar MD. 12:45:02 Sedation plan: TIVA Medication:Propofol 12:45:12 Procedure started. 12:45:15 Defibrillator synced and charged to 275 Joules. 12:45:17 Shock delivered. 12:45:22 Patient cardioverted to sinus rhythm . 12:46:01 Procedure ended.(Physican Out) 12:46:13 Fluoroscopy time 00.00 minutes. 12:46:13 Fluoroscopy dose: 0 mGy 12:46:13 Flurop Dose total: 0 12:46:17 Dose Area Product 0 mGy/cm. 12:46:21 Contrast amount:Isovue 300 0ml. 12:46:32 Post-procedure physical assessment completed. ASA score P 3 - A patient with severe systemic disease as per Sergio Aguiar MD. 12:46:42 Post procedure rhythm: sinus rhythm 12:46:44 Estimated blood loss: 0 ml 12:46:46 Post procedure instruction explained to patient.Patient verbalizes understanding. 12:46:46 Patient needs reinforcement of post procedure teaching. 12:46:48 Procedure and supply charges have been captured, reviewed, submitted and are correct. 12:46:50 Procedure Complication : No complications 12:47:05 Operative report dictated upon procedure completion. 12:47:05 See physician's report for complete and final results. 12:47:07 Report given to Pre/Post Procedure Room. 12:47:09 Patient transfered to Pre/Post Procedure Room with Stretcher. 12:54:11 Vital chart was stopped 12:55:55 Procedure ended. 12:55:55 Full Disclosure recording stopped 12:55:58 End room use (Document Last) Device Usage Item Manufacture Quantity Catalog Hospital Part Current Minimal Lot# / Name Number Charge Number Stock Stock Seri al# Code [facility] [employer] 1 [id number] Combo Signature Audit [place] Stage Time Signature Unsigned Intra-Procedure 04/19/2019 Anisa 12:54:27 PM Eleazar RN Intra-Procedure 04/19/2019 Nilesh Duong 12:55:09 PM RT(R) Intra-Procedure 04/19/2019 Sergio Aguiar 12:57:09 PM [facility] [address] [place] [address]
[~2019-04-19 10:26] MED LIST changes: +HYDROCODON-ACE1 EAC7 PO; +ISOSORBIDE MONO30 M1 PO
[2019-04-19] MEDS ORDERED: NITROQUICK0.4 MG SL (11:00)
[2019-04-19] MEDS ORDERED: ALBUTEROL SULF8.5 GM INH (11:01)
[2019-04-19] MEDS ORDERED: METOLAZONE5 MG PO (11:02)
[2019-04-19] MEDS ORDERED: XARELTO20 MG PO (11:06)
[2019-04-19 11:34] VITALS: BP 122/81; Ht 182.9 cm; Wt 109.1 kg
[2019-04-19 11:48] LABS: ANION GAP 13.4 mmol/L (8-16); CALCIUM 8.7 mg/dL (8.5-10.1); CARBON DIOXIDE 27.4 mmol/L (21.0-32.0); CREATININE - SERUM 1.5 mg/dL (0.6-1.3); POTASSIUM - SERUM 4.8 mmol/L (3.5-5.1)
[2019-04-19 11:49] LABS: BASOPHILS 0.3 % (0-2); EOSINOPHILS 0.8 % (0-7); HEMATOCRIT 42.6 % (42.0-54.0); HEMOGLOBIN 14.9 g/dL (13.5-17.5); IMMATURE GRANULOCYTES 0.3 % (0-5); LYMPHOCYTES 12.5 % (15-50); MCH 31.2 pg (26.0-34.0); MCV 89.3 fL (80.0-100.0); MEAN PLATELET VOLUME 11.6 fL (7.4-10.4); MONOCYTES 8.5 % (2-11); NEUTROPHILS 77.6 % (40-80); PLATELET COUNT 143 10x3/uL (130-400); RBC 4.77 10x6/uL (4.20-6.10); RDW 13.1 % (11.5-14.5)
[2019-04-19 12:10] LABS: INR 2.58 (0.85-1.17)
--- NOTE | 2019-04-19 13:11 | NUR ---
PT SLEEPING, RESP WITH EASE ON O2 AT 2LPM VIA NC. NSR, RATE 70. FAMILY MEMBER AT BEDSIDE, CALL LIGHT IN REACH.
--- NOTE | 2019-04-19 13:26 | NUR ---
PT SLEEPING, RESP WITH EASE ON O2 AT 2LPM VIA NC. NSR, RAES IS 74. BP 123/83.
--- NOTE | 2019-04-19 14:18 | NUR ---
1345 DR TODD HAS ROUNDED ON PATIENT, PT IS ALERT AND DENIES ANY C/O. NSR, DENIES ANY CHEST PAIN, IS SITTING UP IN BED, EATING SANDWICH AND SIPPING ON PO FLUIDS. 1400 PT HAS MADDY SANDWICH AND PO FLUIDS WITH NO NAUSEA. DENIES ANY C/O. IV DC'D WITH CATH INTACT AND PT IS DRESING FOR DC TO HOME. 1411 DC INSTRUCTIONS HAVE BEEN REVIEWED WITH PT AND WHO VERBALIZE UNDERSTANDING. PT IS ALERT AND DENIES ANY C/O. PT ESCORTED TO PRIVATE AUTO VIA WC BY NURSE WITH DRIVING HIM HOME. PT HAS DC INSTRUCTIONS AND ALL PERSONAL BELONGINGS.
--- NOTE | 2019-04-22 11:10 | OP ---
PATIENT NAME: RA ARAUZ MEDICAL RECORD: [id number] :63 LOCATION:D.CAT ADMISSION DATE: SURGEON: RAKESH TODD MD DATE OF OPERATION: 04/19/2019 PROCEDURE: DC cardioversion. INDICATION: Atrial fibrillation. PROCEDURE IN DETAIL: IV conscious sedation was per anesthesia. Continuous heart rate, O2 saturation, blood pressure monitoring all undertaken, all of which remained stable. He received 1 shock at 275 joules restoring sinus rhythm. OVERALL IMPRESSION: Successful DC cardioversion from atrial fibrillation to sinus rhythm. TRANSINT:[id number] Voice Confirmation ID: [id number] DOCUMENT ID: [id number] RAKESH TODD MD at 1110 CC: [id number] DICTATION DATE: 04/19/19 1246 LEAD SYSTEMS ARCHITECT: 04/19/19 1323 DEP CLI 04/19/19 [place] [id number] [place] [address]
== END 2019-04-19 14:11 | disposition home or self-care (01) ==
LOC: D.CATH 10:26
PROVIDERS: ATTEND Internal Medicine Interventional Cardiology
DX: I48.91 Unspecified atrial fibrillation (principal)

== ENCOUNTER 2019-05-06 23:44 | Inpatient (IN) | payer SELFPAY ==
[~2019-05-06] VITALS: Ht 182.9 cm; Wt 106.7 kg
[~2019-05-06 23:44] MED LIST changes: +ALBUTEROL SULF8.5 GM INH; +METOLAZONE5 MG PO; +NITROQUICK0.4 MG SL
[2019-05-07 00:24] VITALS: BP 114/73
--- NOTE | 2019-05-07 01:03 | NUR ---
REPORT RECIEVED FROM ISI PELLETIER FROM ER, LAB CALLED AT THE SAME TIME TO REPORT THAT THE FFP IS READY. REPORTED THIS TO ISI TRAN RN.
--- NOTE | 2019-05-07 01:28 | NUR ---
TWO UNITS OF FFP COMPLETE WITH NO SIGNS OF REACTION.
[2019-05-07 04:30] VITALS: BP 116/64
[2019-05-07 04:47] LABS: BASOPHILS 0 % (0-2); EOSINOPHILS 0.1 % (0-7); HEMATOCRIT 43.7 % (42.0-54.0); HEMOGLOBIN 14.8 g/dL (13.5-17.5); IMMATURE GRANULOCYTES 0.1 % (0-5); LYMPHOCYTES 2.5 % (15-50); MCH 30.8 pg (26.0-34.0); MCHC 33.9 g/dL (31.0-37.0); MEAN PLATELET VOLUME 11.1 fL (7.4-10.4); NEUTROPHILS 96.3 % (40-80); PLATELET COUNT 159 10x3/uL (130-400); RDW 13.6 % (11.5-14.5); WBC 11.6 10x3/uL (4.8-10.8)
[2019-05-07 05:31] LABS: ANION GAP 17.7 mmol/L (8-16); CARBON DIOXIDE 23.9 mmol/L (21.0-32.0); CREATININE - SERUM 1.9 mg/dL (0.6-1.3); MAGNESIUM - SERUM 1.6 mg/dL (1.8-2.4); PHOSPHOROUS 3.2 mg/dL (2.5-4.9); POTASSIUM - SERUM 4.6 mmol/L (3.5-5.1)
--- NOTE | 2019-05-07 06:58 | NUR ---
REPORT RECEIVED. HE IS ALERT ABLE TO VOICE NEEDS. LOWER LIP IS SWOLLEN AND UNDER HIS EYES ARE SWOLLEN. HIS HANDS AND UP BOTH FOREARMS ARE TIGHT AND SWOLLEN NO OTHER EDEMA NOTED. RESP EVEN WITHOUT LABOR. HE DENIES ANY TROUBLE BREATHING OR SWALLOWING. IV SITE IN RIGHT A/C INTACT. CL IN REACH
[2019-05-07 08:00] VITALS: BP 116/65
[2019-05-07 12:00] VITALS: BP 125/73
[2019-05-07 14:31] VITALS: Ht 182.9 cm; Wt 106.7 kg
[2019-05-07 16:00] VITALS: BP 127/71
--- NOTE | 2019-05-07 19:00 | NUR ---
REPORT RECEIVED, WILL CONTINUE POC. PATIENT IS AAOX4, SITTING UP IN BED, AT BEDSIDE. NO S/S OF DISTRESS OBSERVED, RR EVEN AND UNLABORED ON ROOM AIR. PATIENT DENIES NEEDS AT THIS TIME. CL IN REACH, BED LOCKED AND LOWERED. WILL CTM.
[2019-05-07 21:04] VITALS: BP 119/65
[2019-05-08 00:24] VITALS: BP 134/73
[2019-05-08 04:30] VITALS: BP 115/64
[2019-05-08 05:48] LABS: BASOPHILS 0 % (0-2); EOSINOPHILS 0 % (0-7); HEMATOCRIT 42.4 % (42.0-54.0); HEMOGLOBIN 14.2 g/dL (13.5-17.5); IMMATURE GRANULOCYTES 0.3 % (0-5); LYMPHOCYTES 1.7 % (15-50); MCH 31.1 pg (26.0-34.0); MCHC 33.5 g/dL (31.0-37.0); MEAN PLATELET VOLUME 11.1 fL (7.4-10.4); PLATELET COUNT 153 10x3/uL (130-400); RBC 4.56 10x6/uL (4.20-6.10); RDW 13.7 % (11.5-14.5)
[2019-05-08 05:50] LABS: WBC 19.9 10x3/uL (4.8-10.8)
[2019-05-08 06:02] LABS: ANION GAP 15.7 mmol/L (8-16); CALCIUM 8.9 mg/dL (8.5-10.1); CARBON DIOXIDE 24.4 mmol/L (21.0-32.0); CREATININE - SERUM 1.6 mg/dL (0.6-1.3); PHOSPHOROUS 3.4 mg/dL (2.5-4.9); POTASSIUM - SERUM 5.1 mmol/L (3.5-5.1)
--- NOTE | 2019-05-08 06:25 | NUR ---
BS 350, 8UNITS INSULIN ADMINISTERED TO LT ARM.
--- NOTE | 2019-05-08 07:00 | NUR ---
REPORT RECEIVED. HE IS LYING IN BED AROUSES WHEN THE DOOR OPENS. HIS SWELLING IN HIS LIPS UNDEREYES AND HANDS/FOREARMS IS IMPROVED. IV OF NS WAS SALINE LOCKED. HE DENIES ANY C/O RESP EVEN WITHOUT LABOR. DENIES ANY COUGH, OR DIFF WITH SWALLOWING. CL IN REACH.
[2019-05-08] MEDS ORDERED: MEDROL DOSE PACK4 MG PO (11:09)
--- NOTE | 2019-05-08 12:58 | NUR ---
PATIENT TO REFUSE FLU SHOT UPON DISCHARGE, STATES THAT HE NEVER TAKES THEM.
[2019-05-08 13:36] VITALS: BP 133/82
--- NOTE | 2019-05-08 13:50 | NUR ---
DISCHARGE INSTRUCTIONS EXPLAINED TO HIM IN DETAIL INCLUDING HOLDING HIS METFORMIN FOR 72 HOURS AND IMPORTANCE OF FOLLOW UP APPT AND NOT TO EVER TAKE JERRY OR ARBS. SALINE LOCK D/C WITH CATH INTACT BLEEDING CONTROLLED WITH PRESSURE OF 5 MINS. LEFT VIA W/C TRANSPORT TO [facility].
--- NOTE | 2019-05-08 17:05 | MORECARE ---
CASE MANAGEMENT DISCHARGE SUMMARY PATIENT: RA ARAUZ UNIT: [id number] ADM DATE: 05/07/19 AGE: 53 : 63 SEX: M ROOM/BED: D.8202 AUTHOR: CEE NUGENT PHYSICIAN: REFERRING PHYSICIAN: SIRI WANG DO DATE OF SERVICE: 05/08/19 Discharge Plan Patient Name: RA ARAUZ Facility: [facility]:[place] : 1965 Planned Disposition: Home Anticipated Discharge Date: 05/08/19 Discharge Date: 05/08/2019 Expected LOS: 1 Initial Reviewer: MARY Initial Review Date: 05/08/2019 Generated: 05/08/19 6:04 pm Comments DCP- Discharge Planning Updated by [email or web address]: Norberto Sullivan on 05/08/19 4:[address] Patient Name: RA ARAUZ Admission Status: ER Accout number: [id number] Admission Date: 05-07-2019 : 1965 Admission Diagnosis: Attending: SIRI WANG Current LOS: 1 Anticipated DC Date: 05-08-2019 Planned Disposition: Home Primary Insurance: UNINSURED DISCOUNT PLAN Discharge Planning Comments: CM MET WITH PT IN ROOM TO DISCUSS DISCHARGE PLANNING AND NEEDS. PT REPORTS LIVING AT HOME INDEPENDENTLY WITH SPOUSE. PT HAS NO MEDICAL EQUIPMENT AND NO OUTSIDE SERVICES ASSISTING IN THE HOME. CM DISCUSSED AVAILABILITY OF HOME HEALTH, REHAB SERVICES AND MEDICAL EQUIPMENT. 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 PT REPORTS HIS WILL PICK HIM UP FOR DISCHARGE HOME. PT STATES SOMEONE FROM THE HOSPITAL HAS DISCUSSED AND WILL ASSIST WITH FILING FOR MEDICAID TO COVER HOSPITAL VISIT. PT REPORTS HIS [employer] IS $500 PER MONTH AND ASKED ABOUT ASSISTANCE PROGRAM. CM PROVIDED [employer] ASSISTANCE PROGRAM APPLICATION AND INFORMATION. PT DENIES FURTHER NEEDS. 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 Manual Equipment Mechanic: Norberto Sullivan DCPIA - Discharge Planning Initial Assessment Updated by [id number]: Norberto Sullivan on 05/08/19 4:59 pm * Is the patient Alert and Oriented? Yes * How many steps to enter\exit or inside your home? * PCP DR[facility] LOUISE IN [place] * Pharmacy [facility] [place] * Preadmission Environment Home with Family * ADLs Independent * Equipment None * Other Equipment NO MEDICAL EQUIPMENT PROVIDER PREFERENCE * List name and contact numbers for known caregivers / representatives who currently or will assist patient after discharge: MOLLY ARAUZ,SPOUSE, * Verbal permission to speak to the caregivers and representatives has been obtained from the patient. Yes * Community resources currently utilized None * Please name any agencies selected above. NONE * Additional services required to return to the preadmission environment? No * Can the patient safely return to the preadmission environment? Yes * Has this patient been hospitalized within the prior 30 days at any hospital? No Patient Name: RA ARAUZ Page [id number] at 1705 All edits/amendments must be made on the electronic document DICTATION DATE: 05/08/191703 PROOF TESTER: SOCORRO 05/08/191703 RPT#: [id number] DC DATE:05/08/19 STATUS: DIS IN [facility] [address] [place] [address] END OF REPORT
== END 2019-05-08 13:50 | disposition home or self-care (01) | DRG 916 ==
LOC: D.ER 23:44 → D.M2 05-07 00:19 → OBSVTIME 05-07 00:19 → D.M2 05-07 00:19
PROVIDERS: ADMIT Family Medicine; ATTEND Family Medicine
DX: T78.3XXA Angioneurotic edema, initial encounter (principal); I48.92 Unspecified atrial flutter; E11.9 Type 2 diabetes mellitus without complications; I11.0 Hypertensive heart disease with heart failure; I50.9 Heart failure, unspecified; I25.10 Atherosclerotic heart disease of native coronary artery without angina pectoris; I48.91 Unspecified atrial fibrillation

== ENCOUNTER 2019-06-07 23:42 | Inpatient (IN) | payer SELFPAY ==
[~2019-06-07] VITALS: Ht 182.9 cm; Wt 108.9 kg
--- NOTE | ~2019-06-07 | CN ---
PATIENT NAME:RA ARAUZ MEDICAL RECORD: [id number] : 63 LOCATION:D. D.2123 ADMIT DATE: 06/07/19 ACCOUNT: [id number] CONSULTING PHYSICIAN: RAKESH TODD MD REFERRING PHYSICIAN: BRANDY CHIU MD DATE OF CONSULTATION: 06/08/2019 DIAGNOSES: 1. Unstable angina. 2. Coronary artery disease. 3. Previous percutaneous transluminal coronary angioplasty stent. 4. Paroxysmal atrial fibrillation. 5. Hypertension. 6. Hyperlipidemia. 7. Noninsulin-dependent diabetes. HISTORY OF PRESENT ILLNESS: This is a gentleman with a past history of coronary artery disease. Last cardiac intervention in 2017, has had 2 days of increasing episodes of chest pain, chest discomfort compatible with angina, very typical angina; a dull, aching, pressure and sensation across the anterior chest, centered in the anterior chest. He has now progressed to episodes of class IV rest pain. It is just like that of his previous angina. He has had no palpitations with this. He does have a history of atrial fibrillation, cardioversion earlier in the year. He is on amiodarone and he has maintained sinus rhythm. His EKG is with an intraventricular conduction delay, but no acute ST-T abnormalities. He has continued to have the episodes of chest discomfort with diaphoresis and nausea this morning while in the hospital. PHYSICAL EXAMINATION: CONSTITUTIONAL/GENERAL APPEARANCE: Well nourished, well developed, appears stated age. EYES: Lids and conjunctivae noninjected. No discharge. No pallor. ENT: Lips within normal limit. No cyanosis. No pallor. NECK: Carotid arteries, bilateral normal upstroke. No bruits. No thrills. No jugular venous pressure or distention. CERVICAL LYMPH NODES: Nontender. Nonenlarged. THYROID: Not enlarged. No nodules. CARDIOVASCULAR: Precordial exam, nondisplaced. No heaves or pericardial thrills. Rate and rhythm, regular. Heart sounds, normal S1, normal S2. No S3, no gallop, no rub. Systolic murmur, not heard. Diastolic murmur, not heard. RESPIRATORY: Respiratory effort, unlabored. Normal curvature. No thoracic deformity. No chest wall tenderness. Percussion, resonant. Auscultation, clear. No wheezes, no rales, no rhonchi. ABDOMEN: Soft, nondistended, nontender. No abdominal pain, no vomiting and normal appetite. MUSCULOSKELETAL: No joint tenderness, normal gait, normal tone. SKIN: Warm and dry. OVERALL IMPRESSION: Chest pain compatible with angina, continued episodes of pain, diaphoresis and nausea. Heart rates are in the 60s. Systolic blood pressures in the 130s. At this time, we will proceed with coronary angiography. Further care depends upon findings of the angiography. TRANSINT:[id number] Voice Confirmation ID: [id number] DOCUMENT ID: [id number] CONSULT REPORT [id number] RA ARAUZ JEFFREY MD CC: [id number] DICTATION DATE: 06/08/19 1040 SOFTWARE DESIGN ENGINEER: 06/08/19 1114 ADM IN [facility] [address] [id number]
--- NOTE | ~2019-06-07 | HEMODYNAMI ---
PATIENT:RA ARAUZ MEDICAL RECORD: [id number] : 63 [facility] D[facility]2123 [id number] ADMISSION DATE: 06/07/19 Generatedon:06/08/201912:22 Patient name: RA ARAUZ Patient #: [id number] : 1965 Date of study: 06/08/2019 Page: Of Hemodynamic Procedure Report Patient Data Patient Demographics Procedure consent was obtained First Name: RA Gender: Male Last Name: DAVONTE : 1965 [facility] Initial: NICKI Age: 53 year(s) Patient #: [id number] Race: SSN: [id number] Additional ID: [id number] Contact details [address]: [address] [place] [address] State: [place] City: [place] Zip code: [address] Past Medical History Allergies Allergen Reaction Date Comments Reported Other allergy 07/15/2016 PCN, Plavix Other allergy 07/20/2016 PLAVIX, PCN Penicillins 09/06/2018 Other allergy 06/08/2019 Admission Admission Data Admission Date: 06/07/2019 Admission Time: 23:54 Arrival Date: 06/08/2019 Arrival Time: 0:00 Admit Source: Emergency Insurance Payor: None department Room #: D.2123 Height (in.): 72 BSA: 2.3 (m2) Height (cm.): 182.88 BMI: 32.55 (kg/m2) Weight (lbs.): 240 Weight (kg.): 108.86 Lab Results Lab Result Date: 06/08/2019 Lab Result Time: 0:00 Biochemistry Name Units Result Min Max BUN mg/dl 18 --(---*)-- 7 18 Creatinine mg/dl 1.5 --(----)-* 0.6 1.3 CBC Name Units Result Min Max Hemoglobin g/dl 16.7 --(---*)-- 13.5 17.5 Procedure Procedure Types Cath Procedure Diagnostic Procedure [facility] w/Coronaries FFR/IVUS FFR Initial Sedation Charges Moderate Sedation up to 15 minutes PCI Procedure Coronary Stent Coronary Stent Initial Procedure Description Procedure Date Procedure Date: 06/08/2019 Procedure Start Time: 12:07 Procedure End Time: 12:21 Procedure Staff Name Function Sergio Aguiar MD Performing Physician Raiza Baird RN Fire Alarm Repairer Kaylee Copeland RT Monitor Lesly Moe RT Scrub Procedure Data Cath Procedure Fluoroscopy Diagnostic fluoroscopy Total fluoroscopy Time: 2.8 time: 2.8 min min Diagnostic fluoroscopy Total fluoroscopy dose: 918 dose: 918 mGy mGy Contrast Material Contrast Material Type Amount (ml) Isovue 300 94 Entry Location Entry Primary Successful Side Size Upsize Upsize Entry Closure Succes sful Closure Location (Fr) 1 (Fr) 2 (Fr) Remarks Device Remarks Femoral Right 5 Fr 6 Fr Exoseal artery Short Estimated blood loss: 10 ml Diagnostic catheters Device Type Used For End Catheter Placement MULTIPACK Pigtail 5 Fr Procedure catheter MULTIPACK JL 4.0 5Fr Procedure catheter MULTIPACK 3DRC 5Fr Procedure catheter Procedure Complications No complications Procedure Medications Medication Administration Route Dosage 0.9% NaCl I.V. 100 ml/hr Oxygen etCO2 Nasal cannula 2 l/min Lidocaine 2% added to field 20 Heparin Flush Bag added to field 2 bags (1000units/500ml NS) Versed I.V. 2 mg Fentanyl I.V. 100 mcg Heparin Bolus I.V. 4000 units Integrilin (Bolus I.V. 9.5 ml 2mg/ml) Integrilin (Bolus wasted 0.5 ml 2mg/ml) Hemodynamics Rest BSA: 2.3 (m2) HGB: 16.7 (g/dl) O2 Consumption: Estimated: 278.51 (ml/min) O2 Con sumption indexed: Estimated:121.09 (ml/min/m) Heart Rate: 76 (bpm) Snapshots Pre Cath Intra NCS Post Cath Vital Signs Time Heart Resp SPO2 etCO2 NIBP (mmHg) Rhythm Pain Sedation Rate (ipm) (%) (mmHg) Status Level (bpm) 11:50:05 76 19 97 37.7 166/116(136) NSR 0 (11) 10(A) , No pain 11:54:28 79 13 96 38.5 171/111(141) NSR 0 (11) 10(A) , No pain 11:59:27 82 13 95 39.2 Measuring NSR 0 (11) 10(A) , No pain 12:04:03 83 13 97 22.2 190/109(150) NSR 0 (11) 10(A) , No pain 12:08:36 86 13 96 47.3 195/111(144) NSR 0 (11) 9(A) , No pain 12:13:04 90 13 97 20.7 188/115(152) NSR 0 (11) 9(A) , No pain 12:17:28 79 13 97 33.3 184/115(132) NSR 0 (11) 10(A) , No pain Medications Time Medication Route Dose Verified Delivered Reason Notes Effectiveness by by 11:49:34 0.9% NaCl I.V. 100 Sergio Raiza used for ml/hr Cosme Baird procedures nurse 11:49:40 Oxygen etCO2 2 Serigo Raiza used for Nasal l/min Cosme Baird procedure cannula RN 11:49:45 Lidocaine 2% added 20ml Sergio Sergio for local to vial Cosme Aguiar MD anesthetic field 11:49:50 Heparin Flush added 2 Sergio Sergio used for Bag to bags Cosme Aguiar MD procedure (1000units/500ml field NS) 12:03:22 Versed I.V. 2 mg Sergio Raiza for sedation Cosme Baird RN 12:03:33 Fentanyl I.V. 100 Sergio Ariza for sedation mcg Cosme Baird RN 12:14:44 Heparin Bolus I.V. 4000 Sergio Raiza for verif ied units Cosme Baird anticoagulation with Dr. PRABHU Aguiar 12:18:03 Integrilin I.V. 9.5 Sergio Raiza for (Bolus 2mg/ml) ml Cosme Baird antiplatelet RN therapy 12:18:47 Integrilin wasted 0.5 Sergio Raiza for (Bolus 2mg/ml) ml Cosme Baird antiplatelet RN therapy Procedure Log Time Note 11:43:39 Patient Height : 72 inches 11:43:54 Patient Weight : 240 lbs 11:48:56 Vital chart was started 11:49:08 Diagnostic Cath Status : Urgent 11:49:34 0.9% NaCl 100 ml/hr I.V. was administered by Raiza Baird RN; used for procedure; Verbal order read back and verified. 11:49:36 Arrival Date: 06/08/2019 12:00:00 AM 11:49:40 Oxygen 2 l/min etCO2 Nasal cannula was administered by Raiza Baird RN ; used for procedure; Verbal order read back and verified. 11:49:44 Admit Source: Emergency department 11:49:45 Lidocaine 2% 20ml vial added to field was administered by Sergio Aguiar MD; for local anesthetic; Verbal order read back and verified. 11:49:50 Heparin Flush Bag (1000units/500ml NS) 2 bags added to field was administered by Sergio Aguiar MD; used for procedure; Verbal order read back and verified. 11:50:02 Insurance Payor : None 11:51:10 Lab Result : Hemoglobin 16.7 g/dl 11:51:10 Lab Result : Creatinine 1.5 mg/dl 11:51:10 Lab Result : BUN 18 mg/dl 11:51:28 Procedure Status Urgent Heart Cath (IP). 11:51:31 Raiza Baird RN sent for patient. Start room use. 11:51:33 Time tracking: Call back (After hours or weekends) 11:51:39 Plan of Care:Hemodynamics will remain stable., Cardiac rhythm will remain stable., Comfort level will be maintained., Respiratory function will remain adequate., Patient/ family verbilizes understanding of procedure., Procedure tolerated without complication., Recovers from procedure without complications.. 11:51:47 Patient received from Med II to CCL 1 Alert and oriented. Tansferred to table in Supine position. 11:51:56 Signed procedure consent form obtained from patient. 11:51:57 Warm blankets applied, and jayla hugger turned on for patient comfort. 11:51:58 Correct patient and procedure confirmed by team. 11:51:59 ECG and BP/O2 sat monitors applied to patient. 11:52:00 Baseline sample Acquired. 11:52:03 Full Disclosure recording started 11:52:16 H&P Date Dictated: 06/07/2019 Within 30 days and on chart., H&P Addendu m completed by physician on day of procedure. (MUST COMPLETE FOR ALL OUTPATIENTS). 11:52:20 Pre-procedure instructions explained to patient. 11:52:29 Family in waiting room. 11:52:31 Patient NPO since Midnight. 11:52:51 Patient allergic to Other allergy 11:52:55 Is the patient allergic to Iodine/contrast media? No. 11:52:56 Was the patient premedicated? Yes 11:53:01 Is patient on blood thinner?Yes 11:53:04 ACC The patient was administered the following blood thiners within the last 24 hours: ACCPlavix 11:53:07 Patient diabetic? Yes. 11:53:08 If diabetic: On Metformin? Yes 11:53:15 If on Metformin: Last Dose? 06/07/2019 11:53:22 Snore? Yes 11:53:23 Sleep apnea? No 11:53:31 - 11:53:36 Patient pain scale 7/10 ?. 11:53:52 IV patent on arrival in left forearm with 0.9% NaCl at KVO. 11:53:55 Lab results completed and on chart. 11:54:00 Right groin area was prepped with chlora-prep and draped in sterile fashion 11:54:02 Alarms reviewed by RNata N. 11:54:03 Sharps counted by scrub and verified by R.N. 11:56:45 Physician paged 11:56:49 Right groin site verified by team. 11:56:55 Fire Safety Assessment: A--An alcohol-based skin anteseptic being used preoperatively., C--Open oxygen or nitrous oxide is being used., D--An ESU, laser, or fiber-optic light is being used. 11:57:02 Physical assessment completed. ASA score P 3 - A patient with severe systemic disease as per Sergio Aguiar MD. 11:57:25 3a) 45-59 Moderately reduced kidney function. 11:57:59 Maximum allowable contrast dose (3.7 X eGFR X 0.75)144 ml. 11:58:05 Sedation plan: IV Moderate Sedation Medication:Versed, Fentanyl 11:58:12 Use device set Femoral Dx 11:58:13 ACIST Syringe (44850) opened to sterile field. 11:58:14 Bag Decanter (2002S) opened to sterile field. 11:58:14 Medline Cath Pack ([id number]) opened to sterile field. 11:58:15 ACIST Hand Control (18433) opened to sterile field. 11:58:16 ACIST Manifold (06422) opened to sterile field. 11:58:16 DIAGNOSTIC Multipack 5Fr catheter set (NO7744) opened to sterile field. 11:58:17 Tegaderm 4 x 4 (1626W) opened to sterile field. 11:58:19 SHEATH 5FR [place] (HDI172) opened to sterile field. 11:58:20 EMERALD Guide Wire (900-007) opened to sterile field. 12:02:42 Physician arrived 12::42 --------ALL STOP TIME OUT------ 12:02:43 Final Timeout: patient, procedure, and site verified with staff and physician. All members of the team are in agreement. 12:03:22 Versed 2 mg I.V. was administered by Raiza Baird RN; for sedation; Verbal order read back and verified. 12:03:33 Fentanyl 100 mcg I.V. was administered by Raiza Baird RN; for sedation; Verbal order read back and verified. 12:06:17 Procedure started. 12:07:43 Local anesthetic to right femoral artery with Lidocaine 2% by Sergio Aguiar MD.INITIAL ACCESS ONLY 12:07:54 A 5 Fr sheath was inserted into the Right Femoral artery 12:08:17 A MULTIPACK Pigtail 5 Fr catheter was advanced over the wire and used for Procedure. 12:08:21 LV angiography performed. 12:09:10 EF : 50 % 12:09:14 Catheter removed. 12:09:31 A MULTIPACK JL 4.0 5Fr catheter was advanced over the wire and used for Procedure. 12:09:33 LCA angiography performed. 12:11:39 Catheter removed. 12:11:46 A MULTIPACK 3DRC 5Fr catheter was advanced over the wire and used for Procedure. 12:11:48 RCA angiography performed. 12:11:50 Catheter removed. 12:12:00 Sheath upsized to a 6 Fr Short. 12:12:22 6 Fr xblad3.5 guide catheter was inserted over the wire 12:14:10 INFLATOR Merit BasixCompak (NZ4132) opened to sterile field. 12:14:11 Marshall Verrata Plus pressure wire (61029K) opened to sterile field. 12:14:11 GUIDE 6FR XBLAD 3.5 catheter ([id number]) opened to sterile field. 12:14:12 SHEATH 6FR [place] (UDI311) opened to sterile field. 12:14:29 FFR/IFR wire advanced. 12:14:44 Heparin Bolus 4000 units I.V. was administered by Raiza Baird RN; for anticoagulation; verified with Dr. Aguiar Verbal order read back and verified. 12:15:38 Wire advanced across lesion. 12:15:43 Baseline FFR .82. 12:15:53 mRCA lesion measured at .82 with IFR 12:16:29 Pre PCI Site: [place] Ramus has 80% stenosis. 12:17:42 Place stent Inflation Number: 1 A REY RX 2.5 x 34 stent ([id number]) was prepped and advanced across the Ramus 80. The stent was deployed at 17 CHARLI for 0:09 (min:sec) . 12:18:03 Integrilin (Bolus 2mg/ml) 9.5 ml I.V. was administered by Raiza Baird RN; for antiplatelet therapy; Verbal order read back and verified. 12:18:19 EXOSEAL 6Fr (EX600) opened to sterile field. 12:18:32 Wire removed. 12:18:33 Guide catheter removed. 12:18:47 Integrilin (Bolus 2mg/ml) 0.5 ml wasted was administered by Raiza Baird RN; for antiplatelet therapy; Verbal order read back and verified. 12:18:49 Sheath removed intact; hemostasis achieved with Exoseal to the Right Femoral artery. 12:18:51 Procedure ended.(Physican Out) 12:19:03 Fluoroscopy time 02.80 minutes. 12:19:08 Fluoroscopy dose: 918 mGy 12:19:08 Flurop Dose total: 918 12:19:16 Dose Area Product 22415 mGy/cm. 12:19:21 Contrast amount:Isovue 300 94ml. 12:19:23 Maximum allowable dose exceeded? No. 12:19:24 Sharps counted by scrub and verified by R.N. 12:19:26 Insertion/operative site no bleeding no hematoma. 12:19:30 Post-op/insertion site Right Femoral artery dressed using a 4 x 4 and Tegaderm. 12:19:39 Post-procedure physical assessment completed. ASA score P 3 - A patient with severe systemic disease as per Sergio Aguiar MD. 12:19:45 Post procedure rhythm: unchanged. 12:19:48 Estimated blood loss: 10 ml 12:19:51 Post procedure instruction explained to patient.Patient verbalizes understanding. 12:20:13 Procedure type changed to Cath procedure, Diagnostic procedure, LHC, C w/Coronaries, FFR/IVUS, FFR Initial, Sedation Charges, Moderate Sedation up to 15 minutes, PCI procedure, Coronary Stent, Coronary Stent Initial 12:20:14 Procedure and supply charges have been captured, reviewed, submitted an d are correct. 12:20:37 Procedure Complication : No complications 12:20:41 Vital chart was stopped 12:20:48 [facility] Findings: MVD- PCI performed (see procedure note) 12:20:53 Operative report dictated upon procedure completion. 12:20:53 See physician's report for complete and final results. 12:20:55 ACT drawn and resulted at 168 seconds. (normal therapeutic range 180-24 0 seconds). 12:20:56 Report given to [facility] II. 12:21:02 Patient transfered to Med II with Bed. 12:21:04 Procedure ended. 12:21:04 Full Disclosure recording stopped 12:21:07 End room use (Document Last) 12:21:11 ACC-PCI Only Patient was given prescriptions, or instructed by Sergio Aguiar MD to start/continue the following medications upon discharge: Plavix Intervention Summary Intervention Notes Time ActionType Lesion and Equipment Used Action# Pressure Duration Attributes 12:17:42 Place stent Ramus REY RX 2.5 x 1 17 00:09 34 stent ([id number]) Device Usage Item Name Manufacture Quantity Catalog Hospital Part Current Minimal Lot# / Number Charge Number Stock Stock Serial# Code ACIST Syringe Acist 1 36219 215395 757432 288911 20 (06994) Medical [employer] Inc Bag Decanter Microtek 1 343304 39970 750873 5 () Medical Inc. Medline Cath Medline 1 [id number] 578295 63989 886955 5 Pack ([id number]) ACIST Hand Acist 1 91394 864553 630121 357585 5 Control Medical (25266) Systems Inc ACIST Manifold Acist 1 09200 946182 737804 689057 5 (57640) Medical Systems Inc DIAGNOSTIC Cardinal 1 PP5017 910611 41292 252111 30 Multipack 5Fr Health catheter set ([id number]) Tegaderm 4 x 4 3M 1 1626W 429600 290783 044352 5 (1626W) SHEATH 5FR Terumo 1 RSA776 271656 619706 393025 5 [place] (NUV534) EMERALD Guide Cardinal 1 502-455 476743 750891 245466 5 Wire (502-455) Health MULTIPACK Cardinal 1 172043 5 Pigtail 5 Fr Health catheter MULTIPACK JL Cardinal 1 976929 5 4.0 5Fr Health catheter MULTIPACK 3DRC Cardinal 1 782220 5 5Fr catheter Health INFLATOR Merit Merit 1 RM4126 436213 298932 828677 15 InvenSenseSpanish [facility] HospitalCloudApt[facility] (QG4605) Marshall Marshall 1 42665G 336637 490812732 824504 5 Verrata Plus pressure wire (58912T) GUIDE 6FR Cardinal 1 [id number] 256656 145338 300862 10 XBLAD 3.5 Health catheter ([id number]) SHEATH 6FR Terumo 1 BAE058 317609 318684 662153 40 [place] (MGE211) REY RX 2.5 x Medtronic 1 [id number] 174594 1236248 041704 5 [id number] 34 stent ([id number]) EXOSEAL 6Fr Cardinal 1 EX600 383803 324480 084218 10 (EX600) Health Signature Audit [place] Stage Time Signature Unsigned Intra-Procedure 06/08/2019 Kaylee Copeland 12:21:55 PM RT(R) Intra-Procedure 06/08/2019 Raiza Baird 12:22:21 PM RN Intra-Procedure 06/08/2019 Sergio Aguiar 12:22:48 PM [address] [place] [address]
--- NOTE | ~2019-06-07 | OP ---
PATIENT NAME: RA ARAUZ MEDICAL RECORD: [id number] :63 LOCATION:D.M2 D.2123 ADMISSION DATE:06/07/19 SURGEON: RAKESH TODD MD DATE OF OPERATION: 06/08/2019 DATE OF SERVICE: 06/08/2019 PROCEDURES: 1. PTCA stent ramus intermedius. 2. Left heart catheterization. 3. Selective coronary angiography. 4. Left ventriculogram. 5. IFR. INDICATION: Unstable angina and coronary artery disease. PROCEDURE IN DETAIL: After informed consent was obtained and after a detailed description of the risks, benefits as well as alternative therapies, the patient elected to proceed with angiogram and angioplasty. The right femoral area was prepped and draped in normal sterile fashion. Right femoral artery was cannulated via modified Seldinger technique with placement of 6-Namibian sheath. All catheters exchanged through this sheath. FINDINGS: Left ventriculogram was performed in standard 30-degree KENNEDY view, reveals good cardiac wall motion, ejection fraction 55%. SELECTIVE CORONARY ANGIOGRAPHY: 1. Left main is with no significant angiographic disease. 2. Left anterior descending has previously placed stents, these appear to be widely patent with no significant restenosis. No disease elsewise throughout the LAD or its branches. 3. Left circumflex and ramus intermedius have previously placed stents. The ramus intermedius has 80% in-stent restenosis and IFR was abnormal at 0.82. 4. Right coronary has mild irregularities, but no flow-limiting stenosis. SUPERVISOR HISTOLOGY STENT OF THE RAMUS INTERMEDIUS: The stent used was a 2.5 x 34 mm Xavier taken to 17 atmospheres. Result was 0% residual stenosis. OVERALL IMPRESSION: Successful percutaneous transluminal coronary angioplasty stent of the ramus intermedius going from 80% initial stenosis with abnormal IFR to 0% residual. TRANSINT:[id number] Voice Confirmation ID: [id number] DOCUMENT ID: [id number] RAKESH TODD MD CC: [id number] DICTATION DATE: 06/08/19 1224 RAND TACKER: 06/08/19 1307 ADM IN [address] [place] [address]
[~2019-06-07 23:42] MED LIST changes: +MEDROL DOSE PACK4 MG PO
--- NOTE | 2019-06-08 00:11 | NUR ---
BEATRIZ FROM [facility] FOR CARDIAC, STATES HIS CHEST PAIN IS A 4/10, 1 INCH NITRO OINTMENT APPLIED, FAMILY AT BEDSIDE. MD TO BEDSIDE.
[2019-06-08 00:49] LABS: PRO BNP 262 pg/mL (0-125); TROPONIN-I < 0.017 ng/mL (0.000-0.060)
[2019-06-08 01:19] VITALS: BP 137/89
--- NOTE | 2019-06-08 01:28 | NUR ---
PT ARRIVED TO FLOOR VIA STRECHER FROM ER ALERT AND ORIENTED X4. FAMILY AT BEDSIDE. PT PLACED ON TELEMETRY RUNNING 67 SR WITH 1ST DEGREE AND BBB. PT ARRIVED TO FLOOR COMPLAING OF 7/10 PAIN IN CHEST DESCRIBED PRESSURE IN CENTER OF CHEST. PT STATES MORPHINE HASN'T HELPED MUCH IT HAS IN PAST FOR SAME SYMPTOMS. DILIUDED WAS GIVEN IN [facility] AND STATES IT HELPED. PRN MORHINE GIVEN PT STATES PAIN IS 6/10 AT THIS TIME.PLACED PT ON 2L O2-92%. PT DENIES ANY FURTHER NEEDS AT THIS TIME. BED LOW CALL LIGHT WITHIN REACH.
[2019-06-08 02:03] VITALS: BP 137/89; BMI 32.6
[2019-06-08 04:30] VITALS: BP 136/78
[2019-06-08 05:05] LABS: BASOPHILS 0.1 % (0-2); EOSINOPHILS 0.1 % (0-7); HEMATOCRIT 47.7 % (42.0-54.0); HEMOGLOBIN 16.7 g/dL (13.5-17.5); IMMATURE GRANULOCYTES 0.3 % (0-5); LYMPHOCYTES 8.1 % (15-50); MCH 31.2 pg (26.0-34.0); MEAN PLATELET VOLUME 10.4 fL (7.4-10.4); MONOCYTES 5.8 % (2-11); NEUTROPHILS 85.6 % (40-80); RBC 5.36 10x6/uL (4.20-6.10); RDW 12.9 % (11.5-14.5); WBC 14.7 10x3/uL (4.8-10.8)
[2019-06-08 05:11] LABS: PLATELET COUNT 189 10x3/uL (130-400)
[2019-06-08 05:38] LABS: ALKALINE PHOSPHATASE 58 U/L (46-116); ALT (SGPT) 108 U/L (10-68); BILIRUBIN - TOTAL 0.67 mg/dL (0.2-1.3); CALC OSMOLALITY 278 mosm/kg (275-300); CHLORIDE - SERUM 100 mmol/L (98-107); CREATININE - SERUM 1.5 mg/dL (0.6-1.3); POTASSIUM - SERUM 5.9 mmol/L (3.5-5.1); PROTEIN - SERUM 7.2 g/dL (6.4-8.2); SODIUM 135 mmol/L (136-145); TROPONIN-I < 0.017 ng/mL (0.000-0.060); UREA NITROGEN 18 mg/dL (7-18); eGFR NON AFRICAN AMERICAN 52 mL/min (90-120)
[2019-06-08 05:40] LABS: GLUCOSE 222 mg/dL (74-106)
--- NOTE | 2019-06-08 07:52 | NUR ---
ALERT AND ORIENTED. TELEMERTY SHOWS SR AT 68. UP AB DERIAN. RIGHT CHEST AC. DENIES ANY NEEDS AT PRESENT TIME
--- NOTE | 2019-06-08 08:01 | NUR ---
ALERT AND ORIENTED. TELEMERTY SHOWS SR 78. SL TO RIGHT FA AND LEFT FA. LEFT GROIN CATH SITE WITH DRSG DRY AND INTAC. SOME BRUISING NOTES. UP AB LIVE. WILL MONITOR.
[2019-06-08 08:36] VITALS: BP 131/97
--- NOTE | 2019-06-08 10:38 | NUR ---
I have reviewed this patient and I concur with the Shift Assessment completed by the Licensed Practical Nurse today this shift.
--- NOTE | 2019-06-08 11:06 | NUR ---
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
--- NOTE | 2019-06-08 12:43 | NUR ---
PT BACK FROM CHEMICAL HANDLER. V/S STABLE. RIGHT GROIN SOFT WITH DRSG DRY AND INTACT. PPP. TELEMEMERTY SHOWS SR. WILL MONITOR
[2019-06-08 13:29] VITALS: Ht 182.9 cm; Wt 108.9 kg
[2019-06-08] MEDS ORDERED: PLAVIX75 MG PO (18:12)
[2019-06-08] MEDS ORDERED: BAYER CHEWABLE81 MG PO (18:12)
--- NOTE | 2019-06-08 18:33 | NUR ---
PT DISCHARGED. IV DCD WITH TIP INTACT. DRSG TO RIGHT GROIN INTACT. INSTRUCTIONS GIVEN TO PT . TO PRIVATE CAR PER WHEELCHAIR
== END 2019-06-08 18:37 | disposition home or self-care (01) | DRG 247 ==
LOC: OBSVTIME → D.ER 23:42 → D.OPS 23:42 → D.M2 23:54 → D.ER 23:54 → D.M2 23:54 → OBSVTIME 23:54 → D.M2 06-08 17:17
PROVIDERS: Family Medicine; Internal Medicine Interventional Cardiology; ADMIT Family Medicine; ATTEND Family Medicine
PROC: 4A023N7 Measurement of Cardiac Sampling and Pressure, Left Heart, Percutaneous Approach (ICD-10-PCS; 2019-06-08)
PROC: B2111ZZ Fluoroscopy of Multiple Coronary Arteries using Low Osmolar Contrast (ICD-10-PCS; 2019-06-08)
PROC: B2151ZZ Fluoroscopy of Left Heart using Low Osmolar Contrast (ICD-10-PCS; 2019-06-08)
PROC: 027034Z Dilation of Coronary Artery, One Artery with Drug-eluting Intraluminal Device, Percutaneous Approach (ICD-10-PCS; principal; 2019-06-08 11:50)
PROC: 4A033BC Measurement of Arterial Pressure, Coronary, Percutaneous Approach (ICD-10-PCS; 2019-06-08 11:50)
DX: I25.110 Atherosclerotic heart disease of native coronary artery with unstable angina pectoris (principal); E87.1 Hypo-osmolality and hyponatremia; N17.9 Acute kidney failure, unspecified; E11.65 Type 2 diabetes mellitus with hyperglycemia; I10 Essential (primary) hypertension; E87.5 Hyperkalemia; I48.0 Paroxysmal atrial fibrillation; E78.5 Hyperlipidemia, unspecified